=== PATIENT | female | born 1970 | race Caucasian/White ===

== ENCOUNTER 2016-08-27 09:43 | Observation (INO) ==
[2016-08-27] MEDS ORDERED: 0.9 % Sodium Chloride 1,000 ML IVC ONE (10:04)
--- NOTE | 2016-08-27 10:07 | Emergency Department Note ---
Disposition Clinical Impression: Immunosuppressed due to chemotherapy Fever Qualifiers: Fever type: unspecified Qualified Code(s): R50.9 - Fever, unspecified Urinary tract infection Qualifiers: Urinary tract infection type: acute cystitis Hematuria presence: with hematuria Qualified Code(s): N30.01 - Acute cystitis with hematuria Disposition: Admitted As Inpatient Forms: ED Satisfaction Letter Fever HPI - General Chief Complaint: ED Fever Stated Complaint: fever Time Seen by Provider: 08/27/16 09:51 Source: patient Mode of arrival: ambulatory Limitations: no limitations Nursing Notes Reviewed: Yes Vital Signs Reviewed: Yes - History of Present Illness HPI Narrative: Patient presents with a fever for 2 days she states highest is 104. She recently got back on Sunday for chemotherapy in [place] her oncologist recommended going to the nearest ER for IV antibiotics. Pt Subjective Complaint: fever Onset (ago): day(s) (2) Temperature Source: oral Context: sick contacts Associated symptoms: Reports: chills Improves with: nothing Worsens with: nothing - Related Data Home Medications Medication Instructions Recorded Confirmed Calcium Carbonate/Vitamin D3 1 each PO BID 12/24/14 06/28/15 [Calcium 600 + Vitamin D Sftgl] Duloxetine HCl [Cymbalta] 60 mg PO DAILY 12/24/14 06/28/15 LORazepam [Ativan] 1 mg PO Q6H PRN 12/24/14 06/28/15 Venlafaxine HCl [Effexor Xr] 75 mg PO HS 12/24/14 06/28/15 Cyanocobalamin (Vitamin B-12) 5,000 mcg PO DAILY 02/05/15 06/28/15 [Vitamin B-12] Echinacea 02/05/15 02/05/15 Goldenseal 02/05/15 02/05/15 Multivit-Minerals/Folic Acid 200 mcg PO DAILY 02/05/15 06/28/15 [Adult Multi Gummies] Vitamin B Complex [B Complex] 1 each PO DAILY 02/05/15 06/28/15 Multivitamin with Minerals 1 each PO DAILY 03/31/15 06/28/15 [Myvitalife] Magnesium 1 tab PO DAILY 06/28/15 06/28/15 Previous Rx's Medication Instructions Recorded Lidocaine/Prilocaine CREAM [Emla] 1 appl TP AD #1 tube 06/28/15 Prochlorperazine Maleate 10 mg PO Q6HR PRN #60 tablet 06/28/15 [Compazine] Allergies Allergy/AdvReac Type Severity Reaction Status Date / Time No Known Allergies Allergy Verified 07/31/16 13:57 All systems ED: reviewed and negative except as stated. Constitutional: Reports: chills, weakness Respiratory: Denies: dyspnea Gastrointestinal: Denies: abdominal pain, nausea, vomiting Fever PMH - Past Medical History Medical history: Reports: cancer Surgical history: Reports: cancer surgery, ROSIE/BSO Psychiatric history: Reports: anxiety, depression - Social History Smoking Status: Never smoker Alcohol use: Reports: rarely Drug use: Reports: none Physical Exam - General Limitations: no limitations General appearance: alert, in no apparent distress - Head Head exam: atraumatic, normocephalic, normal inspection - Eye Eye exam: Present: normal appearance, PERRL, EOMI - Expanded Eye Exam Pupils: Left: reactive - ENT ENT exam: normal exam, normal oropharynx, mucous membranes moist - Expanded ENT Exam External ear exam: Present: normal external inspection Mouth exam: Present: normal external inspection Teeth exam: Present: normal inspection Throat exam: Present: normal inspection - Neck Neck exam: Present: normal inspection, full ROM, trachea midline - Chest Chest inspection: Present: normal inspection, symmetric chest wall rise - Respiratory Respiratory exam: Present: normal lung sounds bilaterally - Cardiovascular Cardiovascular exam: Present: regular rate, normal rhythm, normal heart sounds - Abdominal Exam Abdominal exam: Present: soft, Non-Tender. Absent: tenderness, distention, guarding, rebound, rigidity - Extremities Exam Extremities exam: Present: normal inspection, full ROM. Absent: tenderness, pedal edema - Expanded Upper Extremity Exam Shoulder exam: Present: normal inspection, full ROM Arm exam: Present: normal inspection, full ROM Elbow exam: Present: normal inspection, full ROM Forearm/Wrist exam: Present: normal inspection, full ROM Hand exam: Present: normal inspection, full ROM Vascular exam: Normal: capillary refill, radial pulse - Expanded Lower Extremity Exam Hip/Pelvis exam: Present: normal inspection, full ROM Upper leg exam: Present: normal inspection, full ROM Knee exam: Present: normal inspection, full ROM Lower leg exam: Present: normal inspection, full ROM Ankle exam: Present: normal inspection, full ROM Foot/toe exam: Present: normal inspection, full ROM Neurovascular/Tendon exam: Absent: motor deficit, sensory deficit, tendon deficit - Back Exam Back exam: Present: normal inspection, full ROM. Absent: tenderness - Neurological Exam Neurological exam: Present: alert, oriented X3 - Expanded Neurological Exam Patient oriented to: Present: person, place, time Coma Scale Eye Opening: Spontaneous Coma Scale Motor Response: Obeys Commands Coma Scale Verbal Response: Oriented Coma Scale Total: 15 - Psychiatric Psychiatric exam: Present: normal affect, normal mood - Skin Skin exam: Present: warm, dry, intact, normal color Course Vital Signs Temperature 98.4 F 08/27/16 09:46 Pulse Rate 118 08/27/16 09:46 Respiratory Rate 20 08/27/16 09:46 Blood Pressure 115/80 08/27/16 09:46 O2 Sat by Pulse Oximetry 97 08/27/16 09:46 Temperature 98.4 F 08/27/16 09:46 Pulse Rate 118 08/27/16 09:46 Respiratory Rate 20 08/27/16 09:46 Blood Pressure 115/80 08/27/16 09:46 O2 Sat by Pulse Oximetry 97 08/27/16 09:46 Oxygen Delivery Oxygen Delivery Room Air Fever - Differential Diagnosis Likely: cellulitis, fever of occult origin, pyelonephritis, viral infection, sepsis, influenza, SIRS - Medical Records Medical records reviewed: Yes I reviewed the patient's medical records. - Lab Data Lab results reviewed: Yes I reviewed the patient's lab results. Result diagrams: 08/27/16 10:29 08/27/16 10:29 Lab Results 08/27/16 08/27/16 08/27/16 Range/Units 10:29 10:29 10:29 WBC 5.3 (4.3-11.1) K/mcL RBC 3.63 L (3.82-4.97) M/mcL Hgb 11.5 (11.5-15.4) g/dL Hct 34.5 L (35.3-44.9) % MCV 95.0 (83.0-100.0) fL MCH 31.7 (28.0-33.3) pg MCHC 33.3 (31.6-35.5) g/dL RDW 16.4 H (11.5-14.5) % Plt Count 117 L (140-400) K/mcL MPV 10.5 (9.4-12.4) fL Immature Gran % 0.8 (0-4) % Seg Neutrophils % 79.9 % Lymphocytes % 12.1 % Monocytes % 0.8 % Eosinophils % 6.0 % Basophils % 0.4 % Neutrophils # 4.2 (1.6-8.9) K/mcL Lymphocytes # 0.6 (0.6-4.6) K/mcL Monocytes # 0.0 (0.0-1.3) K/mcL Eosinophils # 0.3 (0.0-0.6) K/mcL Basophils # 0.0 (0.0-0.2) K/mcL PT 11.6 (9.4-12.1) Seconds INR 1.1 APTT 24.0 L (26.0-36.0) Seconds Sodium 140 (136-145) mEq/L Potassium 4.1 (3.5-4.5) mEq/L Chloride 109 (98-109) mEq/L Carbon Dioxide 22 (19-29) mEq/L BUN 12 (7-20) mg/dL Creatinine 0.66 (0.57-1.11) mg/dL Est GFR ( Amer) > 60 (> 60) Est GFR (Non-Af Amer) > 60 (> 60) BUN/Creatinine Ratio 18 (6-26) Glucose 87 (70-99) mg/dL Calculated Osmolality 289 (280-300) Lactic Acid (0.5-2.2) mmol/L Calcium 8.5 L (8.6-10.8) mg/dL Magnesium 2.0 (1.6-2.6) mg/dL Total Bilirubin 0.4 (0.2-1.2) mg/dL Direct Bilirubin 0.2 (0.0-0.5) mg/dL Indirect Bilirubin 0.2 (0.0-1.2) mg/dL AST 42 H (5-34) Units/L ALT 48 (0-55) Units/L Alkaline Phosphatase 64 (38-126) Units/L Serum Total Protein 6.2 (6.0-8.3) g/dL Albumin 3.4 L (3.5-5.0) g/dL Globulin 2.8 (2.4-3.5) g/dL Albumin/Globulin Ratio 1.2 (1.1-2.2) Urine Color (Yellow) Urine Clarity (Clear) Urine pH (5.0-8.0) pH Units Ur Specific [place] (1.010-1.025) Urine Protein (Neg-Trace) mg/dL Urine Glucose (UA) (Normal) mg/dL Urine Ketones (Negative) mg/dL Urine Blood (Negative) Urine Nitrite (Negative) Urine Bilirubin (Negative) Urine Urobilinogen (Normal) mg/dL Ur Leukocyte Esterase (Negative) Urine Microscopic RBC (0-3) per hpf Urine Microscopic WBC (0-3) per hpf Ur Squamous Epith Cells (None-Few) per lpf Urine Bacteria (None-Few) per hpf Hyaline Casts (None-Few) per lpf Ur Culture Indicated? (NO) 08/27/16 08/27/16 Range/Units 10:29 11:08 WBC (4.3-11.1) K/mcL RBC (3.82-4.97) M/mcL Hgb (11.5-15.4) g/dL Hct (35.3-44.9) % MCV (83.0-100.0) fL MCH (28.0-33.3) pg MCHC (31.6-35.5) g/dL RDW (11.5-14.5) % Plt Count (140-400) K/mcL MPV (9.4-12.4) fL Immature Gran % (0-4) % Seg Neutrophils % % Lymphocytes % % Monocytes % % Eosinophils % % Basophils % % Neutrophils # (1.6-8.9) K/mcL Lymphocytes # (0.6-4.6) K/mcL Monocytes # (0.0-1.3) K/mcL Eosinophils # (0.0-0.6) K/mcL Basophils # (0.0-0.2) K/mcL PT (9.4-12.1) Seconds INR APTT (26.0-36.0) Seconds Sodium (136-145) mEq/L Potassium (3.5-4.5) mEq/L Chloride (98-109) mEq/L Carbon Dioxide (19-29) mEq/L BUN (7-20) mg/dL Creatinine (0.57-1.11) mg/dL Est GFR ( Amer) (> 60) Est GFR (Non-Af Amer) (> 60) BUN/Creatinine Ratio (6-26) Glucose (70-99) mg/dL Calculated Osmolality (280-300) Lactic Acid 1.5 (0.5-2.2) mmol/L Calcium (8.6-10.8) mg/dL Magnesium (1.6-2.6) mg/dL Total Bilirubin (0.2-1.2) mg/dL Direct Bilirubin (0.0-0.5) mg/dL Indirect Bilirubin (0.0-1.2) mg/dL AST (5-34) Units/L ALT (0-55) Units/L Alkaline Phosphatase (38-126) Units/L Serum Total Protein (6.0-8.3) g/dL Albumin (3.5-5.0) g/dL Globulin (2.4-3.5) g/dL Albumin/Globulin Ratio (1.1-2.2) Urine Color Yellow (Yellow) Urine Clarity Clear (Clear) Urine pH 7.0 (5.0-8.0) pH Units Ur Specific [place] 1.017 (1.010-1.025) Urine Protein Negative (Neg-Trace) mg/dL Urine Glucose (UA) Normal (Normal) mg/dL Urine Ketones Negative (Negative) mg/dL Urine Blood Negative (Negative) Urine Nitrite Positive A (Negative) Urine Bilirubin Negative (Negative) Urine Urobilinogen Normal (Normal) mg/dL Ur Leukocyte Esterase Small H (Negative) Urine Microscopic RBC 0-3 (0-3) per hpf Urine Microscopic WBC 5-15 H (0-3) per hpf Ur Squamous Epith Cells Moderate H (None-Few) per lpf Urine Bacteria Many H (None-Few) per hpf Hyaline Casts None Seen (None-Few) per lpf Ur Culture Indicated? YES A (NO) - Radiology Data Radiology results reviewed: Yes I reviewed the patient's radiology results.
[2016-08-27 10:37] LABS: Basophils % 0.4 %; Eosinophils # 0.3 K/mcL (0.0-0.6); Hematocrit 34.5 % (35.3-44.9); Hemoglobin 11.5 g/dL (11.5-15.4); Immature Granulocytes % 0.8 % (0-4); Lymphocytes # 0.6 K/mcL (0.6-4.6); Lymphocytes % 12.1 %; Mean Corpuscular HGB Conc 33.3 g/dL (31.6-35.5); Mean Corpuscular Hemoglobin 31.7 pg (28.0-33.3); Mean Platelet Volume 10.5 fL (9.4-12.4); Monocytes % 0.8 %; Neutrophils # 4.2 K/mcL (1.6-8.9); Platelet Count 117 K/mcL (140-400); Red Blood Count 3.63 M/mcL (3.82-4.97); Red Cell Distribution Width 16.4 % (11.5-14.5); Segmented Neutrophils % 79.9 %
[2016-08-27 10:49] LABS: INR 1.1; Prothrombin Time 11.6 Seconds (9.4-12.1)
[2016-08-27 10:51] LABS: Alanine Aminotransferase 48 Units/L (0-55); Albumin 3.4 g/dL (3.5-5.0); Albumin/Globulin Ratio 1.2 (1.1-2.2); Alkaline Phosphatase 64 Units/L (38-126); Aspartate Amino Transferase 42 Units/L (5-34); BUN/Creatinine Ratio 18 (6-26); Bilirubin,Direct 0.2 mg/dL (0.0-0.5); Bilirubin,Indirect 0.2 mg/dL (0.0-1.2); Bilirubin,Total 0.4 mg/dL (0.2-1.2); Blood Urea Nitrogen 12 mg/dL (7-20); Calcium 8.5 mg/dL (8.6-10.8); Carbon Dioxide 22 mEq/L (19-29); Chloride 109 mEq/L (98-109); Globulin 2.8 g/dL (2.4-3.5); Glucose 87 mg/dL (70-99); Osmolality,Calculated 289 (280-300); Potassium 4.1 mEq/L (3.5-4.5); Sodium 140 mEq/L (136-145); Total Protein 6.2 g/dL (6.0-8.3); eGFR For African Americans > 60 (> 60); eGFR For Non-African Americans > 60 (> 60)
[2016-08-27 11:23] LABS: Bilirubin,Urine Negative (Negative); Blood,Urine Negative (Negative); Clarity,Urine Clear (Clear); Color,Urine Yellow (Yellow); Glucose,Urine (UA) Normal (Normal); Ketones,Urine Negative (Negative); Leukocyte Esterase,Urine Small (Negative); Nitrite,Urine Positive (Negative); Protein,Urine Negative (Neg-Trace); Specific Gravity,Urine 1.017 (1.010-1.025); Urobilinogen,Urine Normal (Normal)
[2016-08-27 11:26] LABS: Bacteria,Urine Many per hpf (None-Few); Hyaline Casts,Urine None Seen per lpf (None-Few); RBC,Urine 0-3 per hpf (0-3); Squamous Epithelial Cell,Urine Moderate per lpf (None-Few)
[2016-08-27] MEDS ORDERED: Meropenem 1,000 MG in 0.9 % Sodium Chloride Mini Bag 100 ML IVPB STA (11:51)
[2016-08-27] MEDS ORDERED: Naloxone 0.4 MG/ML INJ IVP PRN (12:43)
[2016-08-27] MEDS ORDERED: *HR* Morphine 2 MG/ML SYRINGE IVP PRN (12:43)
[2016-08-27] MEDS ORDERED: *HR* LORazepam 1 MG TABLET PO PRN (12:46)
--- NOTE | 2016-08-27 12:54 | Internal Med History&Physical ---
<Juana Yee M - Last Filed: 08/27/16 17:04> Date of Encounter: 08/27/16 Time of Encounter: 12:48 Assessment and Plan (1) Urinary tract infection Current visit: Yes Status: Acute Patient reporting fever to 104, chills and sweats. She denies any dysuria. UA is concerning for UTI. On exam, patient does have mild tenderness to RLQ. She has history of ESBL e.coli UTI susceptible to meropenem. Will treat with IVPB meropenem and await culture results. Qualifiers: Urinary tract infection type: acute cystitis Hematuria presence: with hematuria Qualified Code(s): N30.01 - Acute cystitis with hematuria (2) Fever Current visit: Yes Status: Acute Patient report fever to 104 at home with associated chills and sweats. Patient recently completed a round of chemotherapy on Sunday. UA is concerning for UTI and is likely source of fever. CXR negative for pneumonia. Will treat UTI and continue to monitor. Tylenol PRN for fever. Qualifiers: Fever type: unspecified Qualified Code(s): R50.9 - Fever, unspecified (3) Immunosuppressed due to chemotherapy Current visit: Yes Status: Acute Patient's WBC is actually normal at 5.3, but will continue to monitor given recent chemotherapy treatment. (4) Metastatic breast cancer Current visit: Yes Status: Acute Patient's breast cancer dates back to 2005, when she was treated and in remission until recurrence in 2012. She has been treated by [facility] since her recurrence in 2012. She has metastases to the lung , liver and bone. She had a recent right lower lobe lung resection (07/24/16), and reports no complications, incision on right lateral chest is well healed. She is undergoing chemotherapy and completed a round this past Sunday. She denies any nausea, but reports body aches she states are side effects of the chemotherapy. PRN zofran for nausea PRN [place], morphine for pain Narcan PRN for respiratory depression. (5) DVT prophylaxis Current visit: Yes Status: Acute Encourage ambulation anti-embolic stockings Heparin 5000u SQ TID Internal Medicine - H&P: HPI Chief complaint: fever Admitted From: Emergency Dept Plans for Post Hospital Care: Home History of present illness: Ms. Urbina is a 46 year old female with metastatic breast cancer with recent chemo treatment on Sunday who presented to the ED today with complaints of fever for 2 days. She reports she has had fever up to 104F at home, with chills and sweats. She also reports body aches, but thinks these are a side effect of her chemotherapy. She denies any headache, lightheadedness, chest pain, palpitations, shortness of breath, cough, sore throat, abdominal pain or dysuria. She denies any nausea, vomiting or diarrhea. Evaluation in the ED included a CXR which showed no evidence of pneumonia and mild right basilar scarring. Her UA was concerning for UTI. Her WBC count was normal at 5.3, and lactate was normal at 1.5. She was afebrile, but mildly tachycardic with HR 93- 118. On exam, patient is alert and oriented, in no acute distress. Heart has regular rate and rhythm and lungs are clear bilaterally to auscultation. She has mild tenderness to palpation in her RLQ. Past Med Surg Social Fam HX - Past Medical History Medical history: cancer (breast), kidney stones Psychiatric history: anxiety, depression - Past Surgical History Surgical History: cancer surgery (bilateral mastectomy. RLL lung resection), ROSIE/BSO - Social History Smoking Status: Never smoker Smokeless Tobacco Status: No Alcohol use: rarely Drug use: none - Family History Mother Living Status: Age at : 37 Cause of : suicide Father Living Status: Still Living Internal Medicine - H&P: Meds Calcium Carbonate/Vitamin D3 [Calcium 600 + Vitamin D Sftgl] 1 cap PO BID [History] Duloxetine HCl [Cymbalta] 60 mg PO QAM 12/24/14 [History] LORazepam [Ativan] 1 mg PO Q6H PRN 12/24/14 [History] Cyanocobalamin (Vitamin B-12) [Vitamin B-12] 5,000 mcg PO DAILY 02/05/15 [ History] Vitamin B Complex [B Complex] 1 tab PO DAILY 02/05/15 [History] Multivitamin with Minerals [Myvitalife] 1 cap PO DAILY 03/31/15 [History] Lidocaine/Prilocaine CREAM [Emla] 1 appl TP AD #1 tube 06/28/15 [Rx] Prochlorperazine Maleate [Compazine] 10 mg PO Q6HR PRN #60 tablet 06/28/15 [Rx] Gabapentin [Neurontin] 300 mg PO QAM 08/27/16 [History] Gabapentin [Neurontin] 600 mg PO HS 08/27/16 [History] Venlafaxine HCl [Venlafaxine HCl ER] 150 mg PO HS 08/27/16 [History] Allergies No Known Allergies Allergy (Verified 07/31/16 13:57) All Systems PM: A 10-system review of systems was performed and is negative for pertinent findings except as documented above in the HPI. - Constitutional Constitutional: chills, fever(s), night sweats - EENT Eyes: no change in vision, no discharge, no pain, no photophobia Ears: no ear discharge, no ear pain, no tinnitus Nose, mouth and throat: no dysphagia, no nasal discharge, no neck pain, no sore throat - Cardiovascular Cardiovascular ROS IM: no chest pain, no diaphoresis, no dyspnea, no lightheadedness, no palpitations, no syncope - Respiratory Respiratory: no cough, no dyspnea, no wheezing, no excessive phlegm production - Gastrointestinal Gastrointestinal: no abdominal pain, no diarrhea, no hematemesis, no hematochezia, no melena, no nausea, no vomiting - Genitourinary Genitourinary: no change in urinary stream, no dysuria, no flank pain, no hematuria - Musculoskeletal Musculoskeletal ROS IM: no numbness, no tingling - Integumentary Integumentary IM: no rash, no unusual bruising - Neurological Neurological ROS: no confusion, no convulsions, no focal weakness, no numbness, no tingling, no tremor(s) - Hematologic/Lymphatic Hematologic/Lymphatic: no easy bruising - Constitutional Vitals: Temp Pulse Resp BP Pulse Ox 98.4 F 93 18 118/76 98 08/27/16 09:46 08/27/16 11:49 08/27/16 12:23 08/27/16 12:23 08/27/16 11:49 General appearance: Present: A&O X 3, pleasant, no acute distress - Head Head exam: Present: atraumatic, normocephalic - Eye Eye exam: Present: PERRL, conjuntiva pink, sclera anicteric Pupils: Present: PERRL - Neck Neck exam general surgery: Present: supple, trachea midline. Absent: lymphadenopathy - Respiratory Respiratory exam: Present: CTAB. Absent: accessory muscle use, rales, rhonchi, wheezes - Cardiovascular Cardiovascular exam: Present: RRR, +S1, +S2. Absent: diastolic murmur, gallop, rubs, systolic murmur - GI/Abdominal GI/Abdominal exam: Present: normal bowel sounds, soft, tenderness (mild in RLQ) , no peritoneal signs. Absent: distended - Extremities Exam Extremities exam: Present: warm, radial pulses palpable and symetrical. Absent : calf tenderness, cyanotic, pedal edema - Neurological Exam Neurological exam: Present: CN II-XII intact, oriented X3, no focal deficits. Absent: facial droop, speech deficit - Skin Skin exam: Present: dry, intact Internal Med - H&P Results - Labs CBC & Chem 7: 08/27/16 10:29 08/27/16 10:29 Labs: All Lab Results (24 Hours) 08/27/16 08/27/16 08/27/16 Range/Units 10:29 10:29 10:29 WBC 5.3 (4.3-11.1) K/mcL RBC 3.63 L (3.82-4.97) M/mcL Hgb 11.5 (11.5-15.4) g/dL Hct 34.5 L (35.3-44.9) % MCV 95.0 (83.0-100.0) fL MCH 31.7 (28.0-33.3) pg MCHC 33.3 (31.6-35.5) g/dL RDW 16.4 H (11.5-14.5) % Plt Count 117 L (140-400) K/mcL MPV 10.5 (9.4-12.4) fL Immature Gran % 0.8 (0-4) % Seg Neutrophils % 79.9 % Lymphocytes % 12.1 % Monocytes % 0.8 % Eosinophils % 6.0 % Basophils % 0.4 % Neutrophils # 4.2 (1.6-8.9) K/mcL Lymphocytes # 0.6 (0.6-4.6) K/mcL Monocytes # 0.0 (0.0-1.3) K/mcL Eosinophils # 0.3 (0.0-0.6) K/mcL Basophils # 0.0 (0.0-0.2) K/mcL PT 11.6 (9.4-12.1) Seconds INR 1.1 APTT 24.0 L (26.0-36.0) Seconds Sodium 140 (136-145) mEq/L Potassium 4.1 (3.5-4.5) mEq/L Chloride 109 (98-109) mEq/L Carbon Dioxide 22 (19-29) mEq/L BUN 12 (7-20) mg/dL Creatinine 0.66 (0.57-1.11) mg/dL Est GFR ( Amer) > 60 (> 60) Est GFR (Non-Af Amer) > 60 (> 60) BUN/Creatinine Ratio 18 (6-26) Glucose 87 (70-99) mg/dL Calculated Osmolality 289 (280-300) Lactic Acid (0.5-2.2) mmol/L Calcium 8.5 L (8.6-10.8) mg/dL Magnesium 2.0 (1.6-2.6) mg/dL Total Bilirubin 0.4 (0.2-1.2) mg/dL Direct Bilirubin 0.2 (0.0-0.5) mg/dL Indirect Bilirubin 0.2 (0.0-1.2) mg/dL AST 42 H (5-34) Units/L ALT 48 (0-55) Units/L Alkaline Phosphatase 64 (38-126) Units/L Serum Total Protein 6.2 (6.0-8.3) g/dL Albumin 3.4 L (3.5-5.0) g/dL Globulin 2.8 (2.4-3.5) g/dL Albumin/Globulin Ratio 1.2 (1.1-2.2) Urine Color (Yellow) Urine Clarity (Clear) Urine pH (5.0-8.0) pH Units Ur Specific [place] (1.010-1.025) Urine Protein (Neg-Trace) mg/dL Urine Glucose (UA) (Normal) mg/dL Urine Ketones (Negative) mg/dL Urine Blood (Negative) Urine Nitrite (Negative) Urine Bilirubin (Negative) Urine Urobilinogen (Normal) mg/dL Ur Leukocyte Esterase (Negative) Urine Microscopic RBC (0-3) per hpf Urine Microscopic WBC (0-3) per hpf Ur Squamous Epith Cells (None-Few) per lpf Urine Bacteria (None-Few) per hpf Hyaline Casts (None-Few) per lpf Ur Culture Indicated? (NO) 08/27/16 08/27/16 08/27/16 Range/Units 10:29 11:08 12:17 WBC (4.3-11.1) K/mcL RBC (3.82-4.97) M/mcL Hgb (11.5-15.4) g/dL Hct (35.3-44.9) % MCV (83.0-100.0) fL MCH (28.0-33.3) pg MCHC (31.6-35.5) g/dL RDW (11.5-14.5) % Plt Count (140-400) K/mcL MPV (9.4-12.4) fL Immature Gran % (0-4) % Seg Neutrophils % % Lymphocytes % % Monocytes % % Eosinophils % % Basophils % % Neutrophils # (1.6-8.9) K/mcL Lymphocytes # (0.6-4.6) K/mcL Monocytes # (0.0-1.3) K/mcL Eosinophils # (0.0-0.6) K/mcL Basophils # (0.0-0.2) K/mcL PT (9.4-12.1) Seconds INR APTT (26.0-36.0) Seconds Sodium (136-145) mEq/L Potassium (3.5-4.5) mEq/L Chloride (98-109) mEq/L Carbon Dioxide (19-29) mEq/L BUN (7-20) mg/dL Creatinine (0.57-1.11) mg/dL Est GFR ( Amer) (> 60) Est GFR (Non-Af Amer) (> 60) BUN/Creatinine Ratio (6-26) Glucose (70-99) mg/dL Calculated Osmolality (280-300) Lactic Acid 1.5 0.7 (0.5-2.2) mmol/L Calcium (8.6-10.8) mg/dL Magnesium (1.6-2.6) mg/dL Total Bilirubin (0.2-1.2) mg/dL Direct Bilirubin (0.0-0.5) mg/dL Indirect Bilirubin (0.0-1.2) mg/dL AST (5-34) Units/L ALT (0-55) Units/L Alkaline Phosphatase (38-126) Units/L Serum Total Protein (6.0-8.3) g/dL Albumin (3.5-5.0) g/dL Globulin (2.4-3.5) g/dL Albumin/Globulin Ratio (1.1-2.2) Urine Color Yellow (Yellow) Urine Clarity Clear (Clear) Urine pH 7.0 (5.0-8.0) pH Units Ur Specific [place] 1.017 (1.010-1.025) Urine Protein Negative (Neg-Trace) mg/dL Urine Glucose (UA) Normal (Normal) mg/dL Urine Ketones Negative (Negative) mg/dL Urine Blood Negative (Negative) Urine Nitrite Positive A (Negative) Urine Bilirubin Negative (Negative) Urine Urobilinogen Normal (Normal) mg/dL Ur Leukocyte Esterase Small H (Negative) Urine Microscopic RBC 0-3 (0-3) per hpf Urine Microscopic WBC 5-15 H (0-3) per hpf Ur Squamous Epith Cells Moderate H (None-Few) per lpf Urine Bacteria Many H (None-Few) per hpf Hyaline Casts None Seen (None-Few) per lpf Ur Culture Indicated? YES A (NO) - Diagnostic Studies Chest x-ray Additional comments: Chest X-Ray 08/27/16 10:05 IMPRESSION: No evidence of pneumonia. Mild right basilar atelectasis or scarring. Stable right humeral head sclerotic lesion. D/ / 08/27/2016 10:32:12 Alon Bowers MD / [email or web address] Interpreting Provider: Alon Bowers MD <Britton Pan - Last Filed: 08/27/16 19:28> Date of Encounter: 08/27/16 Internal Medicine - H&P: HPI History of present illness: Ms. Urbina is a 46 year old female All Systems PM: A 10-system review of systems was performed and is negative for pertinent findings except as documented above in the HPI. - Constitutional Vitals: Temp Pulse Resp BP Pulse Ox 99.1 F 93 18 121/82 98 08/27/16 18:49 08/27/16 18:49 08/27/16 18:49 08/27/16 18:49 08/27/16 18:49 Internal Med - H&P Results - Labs CBC & Chem 7: 08/27/16 10:29 08/27/16 10:29 - Attending Attestation I examined this patient and my medical decision-making was reviewed with the Advanced Practice Nurse on 08/27/16. I agree with the documented findings, disposition and treatment plan as described except to the extent set forth below. Ms. Urbina is a 46 y/o with recurrent breast cancer presents to ED with fever. She just had chemo last Sunday (in [place]). Has hx of ESBL E coli UTI. No pain. No dysuria. Exam Alert. Comfortable Heart reg Lungs clear Abd nontender I/P 1. UTI - hx ESBL - will treat with Merrem for now. 2. Breast cancer s/p chemo - not neutropenic at this time Further information and plan as above in H&P
[2016-08-27] MEDS: *HR* Heparin 5,000 UNIT/ML VIAL SQ SCH ×2 (13:00→21:13)
[2016-08-27] MEDS: 0.9 % Sodium Chloride 1,000 ML IVC SCH (17:00)
[2016-08-27] MEDS ORDERED: Meropenem 1,000 MG in 0.9 % Sodium Chloride Mini Bag 100 ML IVPB SCH (20:00)
[2016-08-27] MEDS: Gabapentin 300 MG CAPSULE PO SCH (21:13)
[2016-08-27] MEDS: Acetaminophen 325 MG TABLET PO PRN (21:13)
[2016-08-27] MEDS: Venlafaxine XR (24 HR) 150 MG CAP.ER.24H PO SCH (21:13)
[2016-08-28] MEDS: 0.9 % Sodium Chloride 1,000 ML IVC SCH ×3 (00:16→20:30)
[2016-08-28] MEDS ORDERED: Meropenem 1,000 MG in 0.9 % Sodium Chloride Mini Bag 100 ML IVPB SCH (05:00)
[2016-08-28 05:08] LABS: Basophils % 0.4 %; Eosinophils # 0.4 K/mcL (0.0-0.6); Eosinophils % 13.5 %; Hematocrit 31.3 % (35.3-44.9); Hemoglobin 10.6 g/dL (11.5-15.4); Immature Granulocytes % 0.4 % (0-4); Lymphocytes # 0.9 K/mcL (0.6-4.6); Lymphocytes % 32.4 %; Mean Corpuscular HGB Conc 33.9 g/dL (31.6-35.5); Mean Corpuscular Volume 94.6 fL (83.0-100.0); Mean Platelet Volume 10.6 fL (9.4-12.4); Monocytes # 0.1 K/mcL (0.0-1.3); Monocytes % 1.8 %; Neutrophils # 1.4 K/mcL (1.6-8.9); Platelet Count 109 K/mcL (140-400); Red Blood Count 3.31 M/mcL (3.82-4.97); Red Cell Distribution Width 16.2 % (11.5-14.5); Segmented Neutrophils % 51.5 %
[2016-08-28 05:22] LABS: BUN/Creatinine Ratio 16 (6-26); Blood Urea Nitrogen 9 mg/dL (7-20); Calcium 8.3 mg/dL (8.6-10.8); Carbon Dioxide 22 mEq/L (19-29); Chloride 110 mEq/L (98-109); Glucose 85 mg/dL (70-99); Osmolality,Calculated 286 (280-300); Sodium 139 mEq/L (136-145); eGFR For African Americans > 60 (> 60); eGFR For Non-African Americans > 60 (> 60)
[2016-08-28 05:52] LABS: Anisocytosis 1+ (Not Present); Platelet Estimate Decreased (Normal)
[2016-08-28 05:54] LABS: Reactive Lymphocytes Present (Not Present)
[2016-08-28] MEDS: *HR* Heparin 5,000 UNIT/ML VIAL SQ SCH (06:21)
[2016-08-28] MEDS: Vitamin B Complex/Vit C/Vit E 1 EACH TABLET PO SCH (08:55)
[2016-08-28] MEDS: Multivit/Ca/Min/Fe/FA 1 TAB TABLET PO SCH (08:55)
[2016-08-28] MEDS ORDERED: Cyanocobalamin (B-12) 1,000 MCG TABLET PO SCH (09:00)
[2016-08-28] MEDS ORDERED: Gabapentin 300 MG CAPSULE PO SCH (09:00)
--- NOTE | 2016-08-28 10:21 | Internal Med Progress Note ---
Date of Encounter: 08/28/16 Time of Encounter: 09:20 - Assessment and plan (1) Urinary tract infection Current Visit: Yes Status: Acute Assessment and plan: Complicated due to prior ESBL Escherichia coli infection. Will change antibiotic to ertapenem. No longer having any fevers. Urine culture growing gram-negative rods which could be ESBL. Moderate risk for complications. She will need to be discharged on IV antibiotics if the organism is an ESBL bacteria Qualifiers: Urinary tract infection type: acute cystitis Hematuria presence: with hematuria Qualified Code(s): N30.01 - Acute cystitis with hematuria (2) Palmar erythema Current Visit: Yes Status: Acute Assessment and plan: Uncertain etiology. Will monitor for now. No signs of arterial embolism. Could be a drug reaction or related to chemotherapy. Does not appear to be hand -itju-yue-daaao disease as patient does not have any lesions anywhere else. (3) Fever Current Visit: Yes Status: Resolved Assessment and plan: Due to acute UTI. This has resolved Qualifiers: Fever type: due to other condition Qualified Code(s): R50.81 - Fever presenting with conditions classified elsewhere (4) Immunosuppressed due to chemotherapy Current Visit: Yes Status: Acute Assessment and plan: Currently patient's WBC count is 2.8 with absolute neutrophil count of 1.4. Will consult oncology for further recommendations. (5) DVT prophylaxis Current Visit: Yes Status: Acute Assessment and plan: Patient has been on heparin subcutaneous. Will change to Lovenox. Patient does have underlying pancytopenia (6) Metastatic breast cancer Current Visit: Yes Status: Acute Assessment and plan: Consult oncology for further recommendations. Patient follows [facility]. She can follow up with them after discharge. - Subjective Interval history: Patient is awake and alert. She has not had any further episodes of fevers overnight. Complains of some redness in both her palms with associated numbness. No pain. She has never had similar kinds of symptoms before. She is not allergic to any medications. She denies any pain in her mouth or feet - Constitutional Vitals: Temp Pulse Resp BP Pulse Ox 98.0 F 99 18 121/80 97 08/28/16 04:57 08/28/16 04:57 08/28/16 04:57 08/28/16 04:57 08/28/16 04:57 General appearance: Present: mild distress, A&O X 3, pleasant, answers questions appropriately - ENT ENT exam: Present: mucous membranes moist - Neck Neck exam general surgery: Present: supple, trachea midline. Absent: lymphadenopathy - Respiratory Respiratory exam: Present: CTAB. Absent: accessory muscle use, rales, rhonchi, wheezes - Cardiovascular Cardiovascular exam: Present: RRR, +S1, +S2. Absent: diastolic murmur, gallop, rubs, systolic murmur - GI/Abdominal GI/Abdominal exam: Present: normal bowel sounds, soft, no peritoneal signs. Absent: distended, tenderness - Extremities Exam Extremities exam: Present: warm, radial pulses palpable and symetrical. Absent : calf tenderness, cyanotic, pedal edema Additional comments: Erythema on both palms. Nontender to palpation. No vesicles seen. Patient has good radial pulses. - Neurological Exam Neurological exam: Present: alert, oriented X3, no focal deficits, strengths equal and symetr throughout. Absent: facial droop, speech deficit - Skin Skin exam: Present: dry, erythema (As described above), intact Internal Medicine: Result - Labs CBC & Chem 7: 08/28/16 04:37 08/28/16 04:37 Labs: Short CBC 08/28/16 Range/Units 04:37 WBC 2.8 L (4.3-11.1) K/mcL Hgb 10.6 L (11.5-15.4) g/dL Hct 31.3 L (35.3-44.9) % Plt Count 109 L (140-400) K/mcL Neutrophils # 1.4 L (1.6-8.9) K/mcL BMP 08/28/16 04:37 Sodium 139 Potassium 4.0 Chloride 110 H Carbon Dioxide 22 BUN 9 Creatinine 0.58 Glucose 85 Calcium 8.3 L - ABG Interpretation ABG results: PT/INR, D-dimer PT 11.6 Seconds (9.4-12.1) 08/27/16 10:29 Consult Discharge Plan - Plan Referrals: Johnnie Amaya MD [Primary Care Provider] - - Attending Attestation This document has been at least partially created by [employer] recognition technology by Dr. Ott. Errors in grammar, wording or other phrases may exist. If errors are found after the documentation is signed, they will be addressed individually in the addendum section of this document when appropriate.
--- NOTE | 2016-08-28 15:29 | Oncology Inp Consult Note ---
<Rossy Recio E - Last Filed: 08/29/16 11:38> Date of Encounter: 08/29/16 Time of Encounter: 14:00 Assessment and Plan (1) Hand foot syndrome Status: Acute Assessment and plan: Associated with previous treatment with Xeloda. Instructed to apply Udderly Smoooth cream to hand and feet several times a day, with extreme dryness and cracking the skin and apply and cover hands and feet with cotton gloves/socks. She was encouraged to avoid any activity putting pressure on hands and feet. To avoid hot showers, avoid hands being and hot water when doing dishes. If a break in the skin occurred she was encouraged to apply liquid bandage. (2) Immunosuppressed due to chemotherapy Status: Acute Assessment and plan: Current ANC 1400, consider giving Neupogen is ANC 500 or below. (3) Urinary tract infection Status: Acute Assessment and plan: COntinue current treatment until C&S final. (4) Metastatic breast cancer Status: Acute - Data of Consult Patient: known to practice within the last 3 years Consult date: 08/28/16 Requesting Physician: Magdalene Ott MD Primary Care Provider: Johnnie Amaya MD - Consult Narrative Reason for consult: Pancytopenia following chemotherapy History of present illness: Ms. Urbina is a 46 year old female with a history of left breast cancer. She was admitted through the [place] emergency department with fever. She states fever been present for 2 days with the highest being 104. She is currently receiving chemotherapy at [facility] in [place]. Her last chemotherapy was given on 08/25/2016. At that time she received Taxotere, Perjeta and Herceptin. Prior to current treatment she had been receiving Xeloda and which she took Xeloda twice a day for 14 days with 7 day off prior to starting the next cycle. She states that she had been on this medication for about 3 months. The reason for changing from Xeloda to her current treatment was because the right lung nodule pathology indicated HER-2 positive disease. In the past her disease had been HER-2 negative. The patient she has been on several different chemotherapy agents since being treated at [facility]. Do not have records to review. The patient had previously been seen at [facility]. She was initially diagnosed with breast cancer in 2005. She had BRCA testing that was negative. Her oncology history to the reviewed per the oncology consult note 06/28/2015. Was seen and examined at bedside. She states she is feeling much better than now than when admitted. She is afebrile at this time. She is currently being treated with INVanz for urinary tract infection. Cultures indicate gram- negative amisha. Final culture and sensitivity pending. Past Med Surg Social Fam HX - Past Medical History Medical history: cancer (breast L), kidney stones Psychiatric history: anxiety, depression - Past Surgical History Surgical History: cancer surgery (bilateral mastectomy. Left modified radical mastectomy, right prophylactic mastectomy RLL lung resection), ROSIE/BSO (1 ovary ) - Social History Smoking Status: Never smoker Smokeless Tobacco Status: No Alcohol use: rarely Drug use: none - Family History Mother Living Status: Age at : 37 Cause of : suicide Father Living Status: Still Living Medications and Allergies Calcium Carbonate/Vitamin D3 [Calcium 600 + Vitamin D Sftgl] 1 cap PO BID [History] Duloxetine HCl [Cymbalta] 60 mg PO QAM 12/24/14 [History] LORazepam [Ativan] 1 mg PO Q6H PRN 12/24/14 [History] Cyanocobalamin (Vitamin B-12) [Vitamin B-12] 500 mcg PO DAILY 02/05/15 [History] Vitamin B Complex [B Complex] 1 tab PO DAILY 02/05/15 [History] Multivitamin with Minerals [Myvitalife] 1 cap PO DAILY 03/31/15 [History] Lidocaine/Prilocaine CREAM [Emla] 1 appl TP AD #1 tube 06/28/15 [Rx] Prochlorperazine Maleate [Compazine] 10 mg PO Q6HR PRN #60 tablet 06/28/15 [Rx] Gabapentin [Neurontin] 300 mg PO QAM 08/27/16 [History] Gabapentin [Neurontin] 600 mg PO HS 08/27/16 [History] Venlafaxine HCl [Venlafaxine HCl ER] 150 mg PO HS 08/27/16 [History] Allergies No Known Allergies Allergy (Verified 07/31/16 13:57) All systems: reviewed and no additional remarkable complaints except as stated Constitutional: Present: fatigue Additional comments: Breath denies shortness of breath, or cough Additional comments: Denies GI symptoms Additional comments: Denies dysuria, urgency, frequency Additional comments: Denies depression or anxiety Oncology - Exam - Constitutional Vitals: Temp Pulse Resp BP Pulse Ox 98.1 F 100 16 122/82 98 08/28/16 15:01 08/28/16 15:01 08/28/16 15:01 08/28/16 15:01 08/28/16 15:01 General appearance: no acute distress - Head Head exam: Present: normal inspection, normocephalic - ENT ENT exam: Present: mucous membranes moist, normal exam - Neck Additional comments: No lymphadenopathy - Respiratory Respiratory exam: Present: CTAB - Cardiovascular Cardiovascular exam: Present: RRR - GI/Abdominal GI/Abdominal exam: Present: soft (, Nontender) - Extremities Exam Extremities exam: Present: normal inspection (No edema) - Back Exam Back exam: Present: normal inspection - Neurological Exam Neurological exam: Present: alert, oriented X3 - Skin Skin exam: Present: erythema Additional comments: Erythema on palms of hands and soles of [id number] syndrome related to previous Xeloda treatment Oncology - Results - Labs Labs: Short CBC 08/28/16 Range/Units 04:37 WBC 2.8 L (4.3-11.1) K/mcL Hgb 10.6 L (11.5-15.4) g/dL Hct 31.3 L (35.3-44.9) % Plt Count 109 L (140-400) K/mcL Neutrophils # 1.4 L (1.6-8.9) K/mcL BMP 08/28/16 04:37 Sodium 139 Potassium 4.0 Chloride 110 H Carbon Dioxide 22 BUN 9 Creatinine 0.58 Glucose 85 Calcium 8.3 L Consult Discharge Plan - Plan Referrals: Vandana Alvarez MD [Partnered Physician] - 09/08/16 3:50 pm Johnnie Amaya MD [Primary Care Provider] - 09/06/16 11:00 am () <Vandana Alvarez - Last Filed: 08/29/16 19:52> Date of Encounter: 08/29/16 - Data of Consult Requesting Physician: Yelena Monzon MD Primary Care Provider: Johnnie Amaya MD - Consult Narrative History of present illness: Ms. Urbina is a 46 year old female Oncology - Exam - Constitutional Vitals: Temp Pulse Resp BP Pulse Ox 98.0 F 102 17 117/79 93 08/29/16 15:23 08/29/16 15:23 08/29/16 15:23 08/29/16 15:23 08/29/16 15:23 Oncology - Results - Labs Labs: Short CBC 08/28/16 Range/Units 19:16 Neutrophils # 0.4 L (1.6-8.9) K/mcL BMP 08/28/16 19:16 Glucose 130 H Calcium 9.1 Cardiac Enzymes 08/28/16 Range/Units Unknown Troponin I 0.00 (0-0.03) ng/mL Liver Function 08/28/16 Range/Units 19:16 Total Bilirubin 0.6 (0.2-1.2) mg/dL AST 26 (5-34) Units/L ALT 37 (0-55) Units/L Alkaline Phosphatase 60 (38-126) Units/L Albumin 3.8 (3.5-5.0) g/dL - Attending Attestation Metastatic breast cancer. She received multiple treatments. Shewas getting Xeloda single agent. Her main disease was in the lungs with multiple lung nodules and also may be some liver lesion. We will try to get the records from [facility] [place] had last dose of Xeloda was around 08/23/2016 She had a recent biopsy which showed her breast cancer was HER-2 positive. About 25% of the time Her 2 negative can convert to HER-2 positive. She was started on Taxotere Herceptin pertuzumab first dose on 08/25/2016 and she was hospitalized next day with UTI with ESBL getting antibiotics Currently Neulasta was not approved by insurance She was not neutropenic on admission but progressive neutropenia with neutrophil count 400 Started on Neupogen 480 g daily She is willing to get further chemotherapy locally at [facility]. I will review the records from [facility] and make a follow-up appointment here. Will continue to work with CT CA 2. She had episode of SVT converted to sinus rhythm with an Adenosine. Cardiology was consulted and started on beta blockers and currently stable 3. Significant hand-foot syndrome with erythema and pain. We will try hydrocortisone ointment topical
[2016-08-28 19:24] LABS: Hemoglobin 11.5 g/dL (11.5-15.4)
[2016-08-28] MEDS ORDERED: *HR* Metoprolol 5 MG/5 ML VIAL IVP ONE ×2 (19:24→19:26)
[2016-08-28 19:25] LABS: Basophils % 1.2 %; Eosinophils # 0.2 K/mcL (0.0-0.6); Eosinophils % 12.9 %; Hematocrit 32.3 % (35.3-44.9); Immature Granulocytes % 1.2 % (0-4); Lymphocytes # 0.9 K/mcL (0.6-4.6); Mean Corpuscular HGB Conc 35.6 g/dL (31.6-35.5); Mean Corpuscular Hemoglobin 32.6 pg (28.0-33.3); Mean Corpuscular Volume 91.5 fL (83.0-100.0); Mean Platelet Volume 10.2 fL (9.4-12.4); Monocytes # 0.1 K/mcL (0.0-1.3); Monocytes % 3.7 %; Neutrophils # 0.4 K/mcL (1.6-8.9); Platelet Count 103 K/mcL (140-400); Red Blood Count 3.53 M/mcL (3.82-4.97)
[2016-08-28 19:34] LABS: Alanine Aminotransferase 37 Units/L (0-55); Albumin 3.8 g/dL (3.5-5.0); Albumin/Globulin Ratio 1.3 (1.1-2.2); Alkaline Phosphatase 60 Units/L (38-126); Aspartate Amino Transferase 26 Units/L (5-34); BUN/Creatinine Ratio 9 (6-26); Bilirubin,Total 0.6 mg/dL (0.2-1.2); Blood Urea Nitrogen 6 mg/dL (7-20); Calcium 9.1 mg/dL (8.6-10.8); Carbon Dioxide 23 mEq/L (19-29); Chloride 108 mEq/L (98-109); Globulin 2.9 g/dL (2.4-3.5); Glucose 130 mg/dL (70-99); Magnesium 2.2 mg/dL (1.6-2.6); Osmolality,Calculated 289 (280-300); Phosphorous 1.3 mg/dL (2.3-4.7); Potassium 3.5 mEq/L (3.5-4.5); Sodium 140 mEq/L (136-145); Total Protein 6.7 g/dL (6.0-8.3); eGFR For African Americans > 60 (> 60); eGFR For Non-African Americans > 60 (> 60)
[2016-08-28 20:01] LABS: Platelet Estimate Slight Decrease (Normal); Reactive Lymphocytes Present (Not Present)
[2016-08-28] MEDS ORDERED: *HR* Metoprolol 5 MG/5 ML VIAL IVP PRN (20:13)
[2016-08-28] MEDS: Ondansetron ODT 4 MG TAB.RAPDIS SL PRN (20:28)
[2016-08-28 20:49] LABS: Ionized Calcium 1.11 mmol/L (1.15-1.35)
--- NOTE | 2016-08-28 21:12 | Event Note ---
Date of Encounter: 08/29/16 Time of Encounter: 19:40 A rapid response was called at 1940 due to the patient's rapid heart rate and lightheadedness. On my arrival the patient appeared to be pale and diaphoretic , anxious she was complaining of jaw pain and palpitations. Physical exam: Heart was regular tachycardic with a rate of 220-230 by monitor. Lungs were clear to auscultation bilaterally. Extremities showed no edema. Head was atraumatic, pupils equal round reactive to light extraocular movements intact, neurologically she had a nonfocal exam. Abdomen was soft nontender nondistended with normoactive bowel sounds. I obtained an EKG stat which showed SVT with a rate of [address] changes. No ST elevation was noted. Blood pressure was marginal at 90/60. I have ordered 500 mL bolus normal saline. The patient was at high risk for quick decompensation and cardiac arrest, her SVT was unstable and could degrade into PA arrest. I have ordered 6 mg of IV adenosine which was administered by the nurse at the bedside. The supraventricular tachycardia resolved within 30 seconds of medication administration and the patient is hard to rate went into sinus tachycardia. She reported significant improvement in her symptoms her jaw pain had resolved. I obtain a repeat EKG which showed normal sinus rhythm and nonspecific ST changes. I will obtain troponin, chemistry panel and electrolytes. Replete magnesium and potassium as needed. Given history of multiple runs of chemotherapy I will obtain an echocardiogram to assess ejection fraction. I will consult cardiology in the morning. I will transfer the patient to stepdown , for now she will be placed in the ICU as an overflow. I will start IV metoprolol 2.5 mg every 6 hours. The patient is highly unstable and there is high probability of emergent and significant clinical decompensation with potential impairment of organ function including cardiovascular system and respiratory system. I have performed 45 minutes of critical care time which involved decision making of high complexity to assess, manipulate, and support vital organ system, in order to prevent further life threatening deterioration of the patient's condition. The time involved in the performance of any procedures was not counted toward critical care time and will be billed separately. Critical care time was spent evaluating the patient, reviewing EKGs, telemetry tracing, imaging studies and laboratory data, ordering medications and reevaluating for clinical response. Date:
[2016-08-28] MEDS: Gabapentin 300 MG CAPSULE PO SCH (22:03)
[2016-08-28] MEDS: Venlafaxine XR (24 HR) 150 MG CAP.ER.24H PO SCH (22:04)
[2016-08-29] MEDS: 0.9 % Sodium Chloride 1,000 ML IVC SCH ×2 (04:22→15:13)
[2016-08-29] MEDS: *HR* Enoxaparin 40 MG/0.4 ML SYRINGE SQ SCH (06:08)
[2016-08-29] MEDS ORDERED: Potassium Phosphate 44 MEQ in 0.9 % Sodium Chloride 250 ML IVPB ONE (07:28)
[2016-08-29] MEDS: Ertapenem 1,000 MG in 0.9 % Sodium Chloride Mini Bag 100 ML IVPB SCH (08:42)
[2016-08-29] MEDS: Vitamin B Complex/Vit C/Vit E 1 EACH TABLET PO SCH (08:44)
[2016-08-29] MEDS: Multivit/Ca/Min/Fe/FA 1 TAB TABLET PO SCH (08:44)
[2016-08-29] MEDS: Cyanocobalamin (B-12) 1,000 MCG TABLET PO SCH (08:45)
--- NOTE | 2016-08-29 09:49 | Cardiology Consult Note ---
Date of Encounter: 08/29/16 Time of Encounter: 09:40 Assessment and Plan (1) SVT (supraventricular tachycardia) Current Visit: Yes Status: Acute SVT in the setting of infection and chemotherapy. No previous history. Now tachycardic in the setting of infection. HR will likely improve with IV antibiotic and metoprolol. Responded to 6 mg adenosine and IV fluid. Start metoprolol. On IV metoprolol PRN. TTE ordered. Check TSH. Discussion w patient/family: The assessment and plan as outlined above was discussed with the patient and/or family members who expressed understanding and agreement. All questions were answered. Thank you for involving us in the care of your patient. Please call with any questions. History of Present Illness Consult date: 08/29/16 Requesting physician: Brenden Vee Consult reason: SVT Chief complaint: Fever and chills History of present illness: Ms. Urbina is a 46 year old female who presented with fever and chills. Tmax 104.0 at home. She was found to have a UTI and is being treated with IV antibiotic. CXR was negative for pneumonia. Yesterday she developed SVT with HR in the 170's. She did not respond to vagal maneuvers. She received chemical cardioversion with 6mg of adenosine. She has a history of breast cancer diagnosed in 2005. She has mets to the lung, liver, and bone, s/p lung resection on 07/24/16. the She has receive multiple rounds of chemo and radiation. She is currently following in [place] for her cancer care and is receiving chemo therapy. Her last treatment was last sunday. She denies previous history of CAD or undergoing previous cardiac testing. Past Med Surg Social Fam HX - Past Medical History Attestation: Yes The following information was validated with the patient. Medical history: cancer (breast L), kidney stones Psychiatric history: anxiety, depression - Past Surgical History Surgical History: cancer surgery (bilateral mastectomy. Left modified radical mastectomy, right prophylactic mastectomy RLL lung resection), ROSIE/BSO (1 ovary ) - Social History Smoking Status: Never smoker Smokeless Tobacco Status: No Alcohol use: rarely Drug use: none - Family History Mother Living Status: Age at : 37 Cause of : suicide Father Living Status: Still Living Medications and Allergies Calcium Carbonate/Vitamin D3 [Calcium 600 + Vitamin D Sftgl] 1 cap PO BID [History] Duloxetine HCl [Cymbalta] 60 mg PO QAM 12/24/14 [History] LORazepam [Ativan] 1 mg PO Q6H PRN 12/24/14 [History] Cyanocobalamin (Vitamin B-12) [Vitamin B-12] 500 mcg PO DAILY 02/05/15 [History] Vitamin B Complex [B Complex] 1 tab PO DAILY 02/05/15 [History] Multivitamin with Minerals [Myvitalife] 1 cap PO DAILY 03/31/15 [History] Lidocaine/Prilocaine CREAM [Emla] 1 appl TP AD #1 tube 06/28/15 [Rx] Prochlorperazine Maleate [Compazine] 10 mg PO Q6HR PRN #60 tablet 06/28/15 [Rx] Gabapentin [Neurontin] 300 mg PO QAM 08/27/16 [History] Gabapentin [Neurontin] 600 mg PO HS 08/27/16 [History] Venlafaxine HCl [Venlafaxine HCl ER] 150 mg PO HS 08/27/16 [History] Allergies No Known Allergies Allergy (Verified 07/31/16 13:57) All Systems Review: A 10-system review of systems was performed and is negative for pertinent findings except as documented above in the HPI. Physical Examination Vital Signs, Last 4 Hours Temp Pulse Resp BP Pulse Ox 08/29/16 06:48 98.6 F 106 18 119/88 97 08/29/16 06:00 90 16 107/61 96 General: Conversant, No Apparent Distress, Other (anxious appearing.) HEENT: Atraumatic, Normocephaly, Mucus Membranes Moist Neck: No JVD, Normal carotid pulses Cardiac: Reg Rate and Rhythm, Normal S1 and S2, No Murmur Lungs: Normal Breath Sounds, No Wheeze, Rales, Rhonchi Neuro: Alert and responsive, No focal deficits noted Abdomen: Soft, Non-Tender Skin: No rashes noted on visualized skin Musculoskeletal: No Chest Wall Tenderness Extremities: No Clubbing, No Cyanosis, No Edema, Normal Pulses Results 08/28/16 19:16 08/28/16 19:16 Lab Results 08/28/16 08/28/16 08/28/16 19:16 19:16 Unknown WBC 1.6 L Hgb 11.5 Hct 32.3 L Plt Count 103 L Sodium 140 Potassium 3.5 Chloride 108 Carbon Dioxide 23 BUN 6 L Creatinine 0.64 Glucose 130 H Calcium 9.1 Magnesium 2.2 Total Bilirubin 0.6 AST 26 ALT 37 Alkaline Phosphatase 60 Troponin I 0.00 - Imaging and Cardiology Echo: pending - EKG Interpretation EKG results cardiology: personally reviewed (SVT, HR [address] changes.) Consult Discharge Plan - Plan Referrals: Vandana Alvarez MD [Partnered Physician] - 09/08/16 3:50 pm Johnnie Amaya MD [Primary Care Provider] -
[2016-08-29 10:50] LABS: Thyroid Stimulating Hormone 1.997 mcIU/mL (0.350-4.840)
[2016-08-29] MEDS ORDERED: Fluconazole 100 MG TABLET PO ONE (11:05)
--- NOTE | 2016-08-29 11:36 | Internal Med Progress Note ---
Date of Encounter: 08/29/16 Time of Encounter: 10:55 - Assessment and plan (1) SVT (supraventricular tachycardia) Current Visit: Yes Status: Acute Assessment and plan: No recurrent episodes reported Cardiology eval appreciated started on BB f/u 2D echo will continue telemonitoring and continue to closely monitor (2) Urinary tract infection Current Visit: Yes Status: Acute Assessment and plan: Urine cultures positive for ESBL will continue Ertapenem Patient will likely be discharged with IV abx One time dose of Fluconazole 150mg PO given for yeast infection Qualifiers: Urinary tract infection type: acute cystitis Hematuria presence: with hematuria Qualified Code(s): N30.01 - Acute cystitis with hematuria (3) Immunosuppressed due to chemotherapy Current Visit: Yes Status: Acute Assessment and plan: Oncology eval appreciated will start Neupogen given the ANC count today will continue to closely monitor continue Pain control (4) Metastatic breast cancer Current Visit: Yes Status: Acute Assessment and plan: Oncology eval appreciated further chemo after discharge started neupogen today (5) Hypophosphatemia Current Visit: Yes Status: Acute Assessment and plan: Phos supplemented will continue to monitor electrolytes and replace as needed (6) DVT prophylaxis Current Visit: Yes Status: Acute Assessment and plan: Lovenox SQ - Subjective Interval history: Patient seen and examined at bedside. Resting in bed and reports of feeling better compared to the previous day. Denies any prior cardiac history. No recurrent episodes of SVT reported. REports of vaginal itchiness consistent with her prior yeast infections. Also was started on Neupogen this morning and reports of diffuse body aches. Denies any chest pain, sob, palpitations at this time. - Constitutional Vitals: Temp Pulse Resp BP Pulse Ox 98.6 F 106 18 119/88 97 08/29/16 06:48 08/29/16 06:48 08/29/16 06:48 08/29/16 06:48 08/29/16 06:48 General appearance: Present: A&O X 3, pleasant, no acute distress, answers questions appropriately - Head Head exam: Present: atraumatic, normocephalic - Eye Eye exam: Present: PERRL, conjuntiva pink, sclera anicteric - Respiratory Respiratory exam: Present: CTAB. Absent: accessory muscle use, rales, rhonchi, wheezes - Cardiovascular Cardiovascular exam: Present: RRR, +S1, +S2, tachycardia Additional comments: right chest wall chemoport in place, s/p bilateral mastectomy - GI/Abdominal GI/Abdominal exam: Present: normal bowel sounds, soft, no peritoneal signs. Absent: distended, tenderness - Extremities Exam Extremities exam: Present: warm, radial pulses palpable and symetrical. Absent : calf tenderness, pedal edema - Neurological Exam Neurological exam: Present: alert, oriented X3 - Psychiatric Psychiatric exam: Present: normal affect, normal mood Internal Medicine: Result - Labs CBC & Chem 7: 08/28/16 19:16 08/28/16 19:16 Labs: Short CBC 08/28/16 Range/Units 19:16 WBC 1.6 L (4.3-11.1) K/mcL Hgb 11.5 (11.5-15.4) g/dL Hct 32.3 L (35.3-44.9) % Plt Count 103 L (140-400) K/mcL Neutrophils # 0.4 L (1.6-8.9) K/mcL BMP 08/28/16 19:16 Sodium 140 Potassium 3.5 Chloride 108 Carbon Dioxide 23 BUN 6 L Creatinine 0.64 Glucose 130 H Calcium 9.1 Cardiac Enzymes 08/28/16 Range/Units Unknown Troponin I 0.00 (0-0.03) ng/mL Liver Function 08/28/16 Range/Units 19:16 Total Bilirubin 0.6 (0.2-1.2) mg/dL AST 26 (5-34) Units/L ALT 37 (0-55) Units/L Alkaline Phosphatase 60 (38-126) Units/L Albumin 3.8 (3.5-5.0) g/dL - ABG Interpretation ABG results: PT/INR, D-dimer PT 11.6 Seconds (9.4-12.1) 08/27/16 10:29 Consult Discharge Plan - Plan Referrals: Vandana Alvarez MD [Partnered Physician] - 09/08/16 3:50 pm Johnnie Amaya MD [Primary Care Provider] - (SEND WEB REQUEST ON 08-29-16 @ 2187)
[2016-08-29] MEDS: *HR* HYDROcodone/Acet 5/325 mg TABLET PO PRN (16:43)
--- NOTE | 2016-08-29 17:36 | Electrocardiograph Report ---
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
[2016-08-29] MEDS: Venlafaxine XR (24 HR) 150 MG CAP.ER.24H PO SCH (21:39)
[2016-08-29] MEDS: Gabapentin 300 MG CAPSULE PO SCH (21:39)
[2016-08-29] MEDS ORDERED: Perflutren Lipid Microsphere 1.3 ML in 0.9 % Sodium Chloride 8.7 ML IVP ONE (22:09)
[2016-08-30] MEDS: 0.9 % Sodium Chloride 1,000 ML IVC SCH ×3 (01:00→20:45)
[2016-08-30] MEDS: Ertapenem 1,000 MG in 0.9 % Sodium Chloride Mini Bag 100 ML IVPB SCH (08:31)
[2016-08-30] MEDS: Vitamin B Complex/Vit C/Vit E 1 EACH TABLET PO SCH (08:31)
[2016-08-30] MEDS: Cyanocobalamin (B-12) 1,000 MCG TABLET PO SCH (08:31)
[2016-08-30] MEDS: Multivit/Ca/Min/Fe/FA 1 TAB TABLET PO SCH (08:32)
--- NOTE | 2016-08-30 08:40 | Cardiology Progress Note ---
Date of Encounter: 08/30/16 Time of Encounter: 08:39 Assessment and Plan (1) SVT (supraventricular tachycardia) Current Visit: Yes Status: Acute SVT, HR 230's, in the setting of infection and chemotherapy. No previous history. Responded to 6mg adenosine. Now tachycardic in the setting of infection. HR will likely improve with IV antibiotic and metoprolol. Encourage hydration. Avg HR 94 bpm over 24 hours. On IV metoprolol PRN. Increase metoprolol to 25 mg BID. No recurrent SVT TTE EF 60%, no significant valvular disease. TSH normal. [facility] will facilitate f/u in 2 weeks. Discussion w patient/family: The assessment and plan as outlined above was discussed with the patient and/or family members who expressed understanding and agreement. All questions were answered. Thank you for involving us in the care of your patient. Please call with any questions. Results 08/30/16 08:35 08/30/16 08:35 Lab Results 08/28/16 19:16 TSH 1.997 - EKG Interpretation EKG results cardiology: other (24 hour telemetry review showed AVg HR 96 bpm. HR 110 this morning, sinus tachycardia.) Consult Discharge Plan - Plan Referrals: Vandana Alvarez MD [Partnered Physician] - 09/08/16 3:50 pm Johnnie Amaya MD [Primary Care Provider] - 09/06/16 11:00 am ()
[2016-08-30] MEDS: Acetaminophen 325 MG TABLET PO PRN ×2 (08:47→19:33)
[2016-08-30 09:07] LABS: Red Cell Distribution Width 15.9 % (11.5-14.5)
[2016-08-30 09:08] LABS: Basophils % 2.1 %; Eosinophils # 0.2 K/mcL (0.0-0.6); Eosinophils % 11.1 %; Hematocrit 31.5 % (35.3-44.9); Immature Granulocytes % 6.9 % (0-4); Lymphocytes # 0.8 K/mcL (0.6-4.6); Lymphocytes % 53.5 %; Mean Corpuscular HGB Conc 34.9 g/dL (31.6-35.5); Mean Corpuscular Volume 91.6 fL (83.0-100.0); Mean Platelet Volume 10.1 fL (9.4-12.4); Monocytes # 0.1 K/mcL (0.0-1.3); Monocytes % 7.6 %; Neutrophils # 0.3 K/mcL (1.6-8.9); Platelet Count 153 K/mcL (140-400); Red Blood Count 3.44 M/mcL (3.82-4.97); Segmented Neutrophils % 18.8 %
[2016-08-30 09:23] LABS: BUN/Creatinine Ratio 8 (6-26); Calcium 9.4 mg/dL (8.6-10.8); Carbon Dioxide 24 mEq/L (19-29); Chloride 106 mEq/L (98-109); Glucose 113 mg/dL (70-99); Osmolality,Calculated 286 (280-300); Potassium 3.9 mEq/L (3.5-4.5); Sodium 139 mEq/L (136-145); eGFR For African Americans > 60 (> 60); eGFR For Non-African Americans > 60 (> 60)
[2016-08-30 09:25] LABS: Blood Urea Nitrogen 5 mg/dL (7-20)
[2016-08-30 09:27] LABS: Platelet Estimate Normal (Normal); Reactive Lymphocytes Present (Not Present)
--- NOTE | 2016-08-30 09:47 | ECHO - Doppler Report ---
Echo with Imaging Enhancement Agent Name: Micaela Urbina Date of Study: 08/29/2016 Date: 1970 Ht: 61.0 in Medical Record#: [id number] Age: 46 Wt: 125.0 lb Gender: Female BSA: 1.55 Order #: [id number] Location: [facility] Room #: 2NO2 Reading Physician: Ira Nash DO Automatic Pilot Mechanic: Frida Fine Ordering Physician: Yelena Monzon MD Primary Physician: Johnnie Amaya MD Indications: Evaluate LVEF Impressions: LVEF 60%. Normal left ventricular size and systolic function. Normal diastolic function of the left ventricle. Normal right ventricular size and function. No significant valvular dysfunction. No pulmonary hypertension. Left Ventricular Wall Motion: Rest Echo Findings All wall segments showed normal motion. Findings: Study Quality * Technically adequate exam. ECG Findings * Normal sinus rhythm. Left Ventricle * LVEF 60%. * Normal LV chamber size, wall thickness and function. * Normal left ventricular diastolic function. Aortic Valve * No aortic regurgitation. * Aortic valve not well visualized. * No aortic stenosis. Mitral Valve * No mitral regurgitation. * Normal mitral valve structure. * No mitral stenosis. Tricuspid Valve * Tricuspid valve not well visualized. * No tricuspid regurgitation. * Estimated RA pressure is 3 mmHg. Pulmonic Valve * Pulmonic valve is not well visualized. * No pulmonic stenosis. * No pulmonic regurgitation. Pulmonary Artery * Pulmonary artery not well visualized. Right Ventricle * Normal right ventricular structure and function. Interatrial Septum * No evidence of PFO by color Doppler. IVC * Normal IVC dimensions and inspiratory collapse. Pericardium * There is no pericardial effusion present. Aorta * Not well visualized. Left Atrium * Normal left atrial size. Right Atrium * Normal right atrial size. History Contrast: Definity 1.3 ml in 8.7 ml of saline 5 ml. Measurements: BP: 112/ 80 2D Normal Values RVIDd: 3.10 cm <2.7 cm IVSd: .70 cm 0.6 - 1.0 cm LVIDd: 4.80 cm 3.7 - 5.6 cm LVPWd: 1.00 cm 0.6 - 1.1 cm LVIDs: 3.40 cm 1.5 - 3.6 cm AO: 2.60 cm < 4.0 cm LA: 2.90 cm 2.0 - 4.0cm %FS: 29.20 cm >25 % LA volume: 17 Mitral Valve Peak E:.66 m/sec Peak A:.58 m/sec E/A Ratio:1.1 Updated by Ira Nash on 08/30/2016 9:41:51 AM electronically signed on 08/30/2016 9:42:31 AM with status of Final Wall Motion Dutton: 1=Normal, 2=Hypokinesis, 3=Akinesis, 4=Dyskinesis, 5=Aneurysmal, 6=Hyperkinetic, X=Not Visualized (Blank)=Missing
--- NOTE | 2016-08-30 12:03 | Internal Med Progress Note ---
Date of Encounter: 08/30/16 Time of Encounter: 12:01 - Assessment and plan (1) SVT (supraventricular tachycardia) Current Visit: Yes Status: Acute Assessment and plan: No recurrent episodes reported Cardiology eval appreciated Increased Metoprolol to 25mg PO BID will continue telemonitoring and continue to closely monitor Likely d/c in am given better rate control (2) Urinary tract infection Current Visit: Yes Status: Acute Assessment and plan: Urine cultures positive for ESBL will continue Ertapenem Patient will likely be discharged with IV abx Qualifiers: Urinary tract infection type: acute cystitis Hematuria presence: with hematuria Qualified Code(s): N30.01 - Acute cystitis with hematuria (3) Immunosuppressed due to chemotherapy Current Visit: Yes Status: Acute Assessment and plan: Oncology eval appreciated continue Neupogen given the ANC count today will continue to closely monitor continue Pain control (4) Metastatic breast cancer Current Visit: Yes Status: Acute Assessment and plan: Oncology eval appreciated further chemo after discharge started neupogen today (5) DVT prophylaxis Current Visit: Yes Status: Acute Assessment and plan: Lovenox SQ - Subjective Interval history: Patient seen and examined at bedside. Reports of no discomfort at this time. Noted to require one time dose of Metoprolol IV overnight for rate control. Metoprolol PO dose increased by cardiology today. - Constitutional Vitals: Temp Pulse Resp BP Pulse Ox 96.8 F L 97 16 116/84 96 08/30/16 11:36 08/30/16 11:36 08/30/16 11:36 08/30/16 11:36 08/30/16 11:36 General appearance: Present: A&O X 3, pleasant, no acute distress, answers questions appropriately - Head Head exam: Present: atraumatic, normocephalic - Eye Eye exam: Present: normal appearance, conjuntiva pink, sclera anicteric - Respiratory Respiratory exam: Present: CTAB. Absent: accessory muscle use, rales, rhonchi, wheezes - Cardiovascular Cardiovascular exam: Present: RRR, +S1, +S2. Absent: diastolic murmur, gallop, rubs, systolic murmur Additional comments: right chest wall chemoport - GI/Abdominal GI/Abdominal exam: Present: normal bowel sounds, soft, no peritoneal signs. Absent: distended, tenderness - Extremities Exam Extremities exam: Present: warm, radial pulses palpable and symetrical. Absent : calf tenderness, cyanotic, pedal edema - Neurological Exam Neurological exam: Present: alert, oriented X3, no focal deficits - Psychiatric Psychiatric exam: Present: normal affect, normal mood Internal Medicine: Result - Labs CBC & Chem 7: 08/30/16 08:35 08/30/16 08:35 Labs: Short CBC 08/30/16 Range/Units 08:35 WBC 1.4 L (4.3-11.1) K/mcL Hgb 11.0 L (11.5-15.4) g/dL Hct 31.5 L (35.3-44.9) % Plt Count 153 (140-400) K/mcL Neutrophils # 0.3 L (1.6-8.9) K/mcL BMP 08/30/16 08:35 Sodium 139 Potassium 3.9 Chloride 106 Carbon Dioxide 24 BUN 5 L Creatinine 0.63 Glucose 113 H Calcium 9.4 - ABG Interpretation ABG results: PT/INR, D-dimer PT 11.6 Seconds (9.4-12.1) 08/27/16 10:29 Consult Discharge Plan - Plan Referrals: Vandana Alvarez MD [Partnered Physician] - 09/08/16 3:50 pm Johnnie Amaya MD [Primary Care Provider] - 09/06/16 11:00 am ()
[2016-08-30] MEDS: *HR* HYDROcodone/Acet 5/325 mg TABLET PO PRN (15:13)
[2016-08-30] MEDS: Ondansetron ODT 4 MG TAB.RAPDIS SL PRN (17:25)
[2016-08-30] MEDS: Venlafaxine XR (24 HR) 150 MG CAP.ER.24H PO SCH (21:10)
[2016-08-30] MEDS: Gabapentin 300 MG CAPSULE PO SCH (21:10)
[2016-08-31] MEDS: *HR* HYDROcodone/Acet 5/325 mg TABLET PO PRN ×2 (03:22→07:33)
[2016-08-31 04:07] LABS: Eosinophils # 0.2 K/mcL (0.0-0.6); Hemoglobin 10.4 g/dL (11.5-15.4); Mean Corpuscular HGB Conc 34.7 g/dL (31.6-35.5); Mean Corpuscular Hemoglobin 31.7 pg (28.0-33.3); Mean Corpuscular Volume 91.5 fL (83.0-100.0); Mean Platelet Volume 10.3 fL (9.4-12.4); Platelet Count 177 K/mcL (140-400); Red Blood Count 3.28 M/mcL (3.82-4.97); Red Cell Distribution Width 15.8 % (11.5-14.5)
[2016-08-31 04:30] LABS: BUN/Creatinine Ratio 6 (6-26); Calcium 9.3 mg/dL (8.6-10.8); Carbon Dioxide 23 mEq/L (19-29); Chloride 107 mEq/L (98-109); Glucose 87 mg/dL (70-99); Magnesium 1.8 mg/dL (1.6-2.6); Osmolality,Calculated 284 (280-300); Phosphorous 1.9 mg/dL (2.3-4.7); Potassium 3.9 mEq/L (3.5-4.5); Sodium 139 mEq/L (136-145); eGFR For African Americans > 60 (> 60); eGFR For Non-African Americans > 60 (> 60)
[2016-08-31 04:32] LABS: Blood Urea Nitrogen 4 mg/dL (7-20)
[2016-08-31 04:33] LABS: Lymphocytes # 1.6 K/mcL (0.6-4.6); Monocytes # 0.2 K/mcL (0.0-1.3); Neutrophils # 0.4 K/mcL (1.6-8.9)
[2016-08-31 04:35] LABS: Large Platelets Present (Not Present); Platelet Estimate Normal (Normal); Reactive Lymphocytes Present (Not Present)
[2016-08-31] MEDS: *HR* Enoxaparin 40 MG/0.4 ML SYRINGE SQ SCH (05:17)
[2016-08-31] MEDS: 0.9 % Sodium Chloride 1,000 ML IVC SCH ×2 (06:20→16:59)
[2016-08-31] MEDS: Ertapenem 1,000 MG in 0.9 % Sodium Chloride Mini Bag 100 ML IVPB SCH (07:27)
[2016-08-31] MEDS ORDERED: Sodium Phosphate 30 MMOL in D5% in Water 100 ML IVPB ONE (07:49)
[2016-08-31] MEDS: Cyanocobalamin (B-12) 1,000 MCG TABLET PO SCH (08:05)
[2016-08-31] MEDS: Vitamin B Complex/Vit C/Vit E 1 EACH TABLET PO SCH (08:05)
[2016-08-31] MEDS: Multivit/Ca/Min/Fe/FA 1 TAB TABLET PO SCH (08:05)
[2016-08-31] MEDS: Ondansetron ODT 4 MG TAB.RAPDIS SL PRN (09:11)
[2016-08-31] MEDS ORDERED: *HR* HYDROcodone/Acet 5/325 mg TABLET PO PRN (11:03)
[2016-08-31] MEDS ORDERED: Ketorolac 30 MG/ML VIAL IVP ONE (11:39)
[2016-08-31] MEDS ORDERED: *HR* HYDROmorphone (PF) 1 MG/ML SYRINGE IVP ONE (11:43)
--- NOTE | 2016-08-31 12:01 | Internal Med Progress Note ---
Date of Encounter: 08/31/16 Time of Encounter: 11:15 - Assessment and plan (1) SVT (supraventricular tachycardia) Current Visit: Yes Status: Acute Assessment and plan: Currently tachycardic due to severe pain will control pain and continue Metoprolol 25mg BID continue tele monitoring (2) Urinary tract infection Current Visit: Yes Status: Acute Assessment and plan: Urine cultures positive for ESBL will continue Ertapenem (Day 4/14) Patient will likely be discharged with IV abx Qualifiers: Urinary tract infection type: acute cystitis Hematuria presence: with hematuria Qualified Code(s): N30.01 - Acute cystitis with hematuria (3) Immunosuppressed due to chemotherapy Current Visit: Yes Status: Acute Assessment and plan: Oncology eval appreciated continue Neupogen given the ANC count today will continue to closely monitor continue Pain control (changed to Oxycodone 10/325 PO q4h for moderate pain and Dilaudid 0.5mg IV q4h for severe pain) awaiting follow up with Dr. Alvarez in regards to continuation of Neupogen given worsening body aches/pain (4) Metastatic breast cancer Current Visit: Yes Status: Acute Assessment and plan: Oncology eval appreciated further chemo after discharge (5) DVT prophylaxis Current Visit: Yes Status: Acute Assessment and plan: Lovenox SQ (6) Electrolyte abnormality Current Visit: Yes Status: Acute Assessment and plan: Hypophosphatemia PHos supplemented continue to monitor electrolytes and replace as needed - Subjective Interval history: Patient seen and examined at bedside. Patient reports of being in excrutiating diffuse body pain and is in tears. Received Hydrocodone 2tabs without adequate relief. States she gets palpitations with morphine. Will try small dose of Dilaudid for pain control - Constitutional Vitals: Temp Pulse Resp BP Pulse Ox 98.2 F 78 16 123/88 96 08/31/16 07:40 08/31/16 11:48 08/31/16 07:40 08/31/16 07:40 08/31/16 03:32 General appearance: Present: mild distress (painful distress), A&O X 3, pleasant , answers questions appropriately - Head Head exam: Present: atraumatic, normocephalic - Eye Eye exam: Present: normal appearance, conjuntiva pink, sclera anicteric - Respiratory Respiratory exam: Present: CTAB. Absent: accessory muscle use, rales, rhonchi, wheezes - Cardiovascular Cardiovascular exam: Present: +S1, +S2, tachycardia Additional comments: right chest wall chemoport - GI/Abdominal GI/Abdominal exam: Present: normal bowel sounds, soft, no peritoneal signs. Absent: distended, tenderness - Extremities Exam Extremities exam: Present: warm, radial pulses palpable and symetrical. Absent : calf tenderness, cyanotic, pedal edema - Neurological Exam Neurological exam: Present: alert, oriented X3 - Psychiatric Psychiatric exam: Present: normal affect, normal mood Internal Medicine: Result - Labs CBC & Chem 7: 08/31/16 03:30 08/31/16 03:30 Labs: Short CBC 08/31/16 Range/Units 03:30 WBC 2.4 L D (4.3-11.1) K/mcL Hgb 10.4 L (11.5-15.4) g/dL Hct 30.0 L (35.3-44.9) % Plt Count 177 (140-400) K/mcL Neutrophils # 0.4 L (1.6-8.9) K/mcL BMP 08/31/16 03:30 Sodium 139 Potassium 3.9 Chloride 107 Carbon Dioxide 23 BUN 4 L Creatinine 0.66 Glucose 87 Calcium 9.3 - ABG Interpretation ABG results: PT/INR, D-dimer PT 11.6 Seconds (9.4-12.1) 08/27/16 10:29 Consult Discharge Plan - Plan Referrals: Vandana Alvarez MD [Partnered Physician] - 09/08/16 3:50 pm Johnnie Amaya MD [Primary Care Provider] - 09/06/16 11:00 am () Brian Riley DO [Partnered Physician] - 09/14/16 12:15 pm Prescriptions: Ertapenem [INVanz] 1,000 mg IVPB DAILY #10 vial
[2016-08-31] MEDS: *HR* HYDROmorphone (PF) 1 MG/ML SYRINGE IVP PRN ×2 (14:52→18:56)
--- NOTE | 2016-08-31 16:29 | Event Note ---
Date of Encounter: 08/31/16 Time of Encounter: 12:00 I received a page from RONIT Keith in [facility]. Salud planned discharge today, but her ANC still low at 0.4. Continue daily neupogen as ordered each day. She complained of severe bone pain today. This is a side effect of the neupogen. It is expected. I ordered claritin 10mg PO daily, as this drug is used to treat bone pain side effect of neupogen or neulasta. You can alos treat with narcotics if claritin does not work. The bone pain diminishes after a few days. If medically stable, OK to discharge, as it may take some time for ANC to get above 1.0-1.5. With home antibiotics being set up, this is a preferable environment with neutropenia. We will follow as outpatient. Dr Alvarez advised.
[2016-08-31] MEDS: *HR* OxyCODONE/APAP 10/325 TABLET PO PRN ×2 (16:52→21:10)
--- NOTE | 2016-08-31 19:29 | Oncology Inp Progress Note ---
Date of Encounter: 08/30/16 Time of Encounter: 19:27 (1) Metastatic breast cancer Current Visit: Yes Status: Acute Assessment and plan: 1. Metastatic breast cancer HER-2 positive currently CYCLE 1 Taxotere Herceptin pertuzumab around 08/25/2016 2. Escherichia coli UTI improving on IV antibiotics 3. Neutropenia. Neutrophil augusto at 400. This is expected with Taxotere. Her neutrophils should start to improve around 09/01/2016. Claritin 10 mg by mouth daily for bone pain from Neupogen if needed She should be okay to be discharged with her current neutrophil level. We will check CBC early next week as an outpatient Oncology: Subj Interval history: Heart rate stable on beta jcoe. She feels comfortable. No major fever - Constitutional Vitals: Vital Signs Temp Pulse Resp BP Pulse Ox 08/31/16 19:00 97.6 F 94 20 121/79 08/31/16 16:03 97.7 F 106 17 98 08/31/16 12:51 98.1 F 79 16 118/83 08/31/16 11:48 78 08/31/16 07:40 98.2 F 100 16 123/88 08/31/16 03:32 98.0 F 87 18 123/88 96 08/30/16 23:53 98.1 F 79 16 105/69 96 08/30/16 19:48 90 08/30/16 19:37 97.1 F L 84 16 129/98 99 Intake and Output 08/31/16 08/31/16 08/31/16 07:59 15:59 23:59 Intake Total 1650 / 1650 640 / 640 1000 / 1000 Output Total 400 / 400 0 / 0 Balance 1650 / 1650 240 / 240 1000 / 1000 Intake: IV Fluids 1000 / 1000 1000 / 1000 0.9 % Sodium Chloride 1, 1000 / 1000 1000 / 1000 000 ML @ 100 mls/hr IVC . Q10H SAKINA Rx#:[id number] Oral 650 / 650 640 / 640 Output: Urine 400 / 400 0 / 0 Other: Meal Lunch Percent of Meal Consumed 5% Weight 58.9 kg Patient Weight 08/31/16 23:59 Weight 58.9 kg Exam: GENERAL: Alert and oriented, well appearing. Mental Status: Affect appropriate for circumstances HEENT: Sclerae anicteric. No mucositis or thrush. No other oral or pharyngeal lesions or erythema. Skin: No rashes or petechiae. No evidence of skin malignancy Lymph nodes: No cervical, supraclavicular, axillary, or inguinal adenopathy. Lungs: Clear to auscultation and percussion bilaterally. Cardiovascular: Regular rate and rhythm. No gallops, murmurs, or rubs. Abdomen: Soft, nontender; no organomegaly or masses palpable. Extremities: No edema. No calf swelling or tenderness. No joint deformity. Neurologic: Alert, cranial nerves II-XII intact; normal gait; no focal weakness or sensory abnormalities. Oncology: Obj Data - Labs CBC & Chem 7: 08/31/16 03:30 08/31/16 03:30 Labs: Laboratory Results - last 24 hr 08/31/16 08/31/16 03:30 03:30 WBC 2.4 L D RBC 3.28 L Hgb 10.4 L Hct 30.0 L MCV 91.5 MCH 31.7 MCHC 34.7 RDW 15.8 H Plt Count 177 MPV 10.3 Seg Neutrophils % 16.0 Lymphocytes % 68.0 Monocytes % 8.0 Eosinophils % 8.0 Neutrophils # 0.4 L Lymphocytes # 1.6 Monocytes # 0.2 Eosinophils # 0.2 Reactive Lymphocytes Present A Platelet Estimate Normal Large Platelets Present A Sodium 139 Potassium 3.9 Chloride 107 Carbon Dioxide 23 BUN 4 L Creatinine 0.66 Est GFR ( Amer) > 60 Est GFR (Non-Af Amer) > 60 BUN/Creatinine Ratio 6 Glucose 87 Calculated Osmolality 284 Calcium 9.3 Phosphorus 1.9 L Magnesium 1.8 - ABG Interpretation ABG results: PT/INR, D-dimer PT 11.6 Seconds (9.4-12.1) 08/27/16 10:29 Consult Discharge Plan - Plan Additional Instructions: CBC on Sunday09/04/2016 at [facility]. Referrals: Vandana Alvarez MD [Partnered Physician] - 09/08/16 3:50 pm Johnnie Amaya MD [Primary Care Provider] - 09/06/16 11:00 am () Brian Riley DO [Partnered Physician] - 09/14/16 12:15 pm Prescriptions: Ertapenem [INVanz] 1,000 mg IVPB DAILY #10 vial
[2016-08-31] MEDS: Venlafaxine XR (24 HR) 150 MG CAP.ER.24H PO SCH (21:09)
[2016-08-31] MEDS: Gabapentin 300 MG CAPSULE PO SCH (21:09)
[2016-09-01] MEDS: *HR* OxyCODONE/APAP 10/325 TABLET PO PRN ×2 (01:27→05:40)
[2016-09-01] MEDS: 0.9 % Sodium Chloride 1,000 ML IVC SCH (02:55)
[2016-09-01 03:42] LABS: Hematocrit 28.8 % (35.3-44.9); Mean Corpuscular HGB Conc 34.7 g/dL (31.6-35.5); Mean Corpuscular Hemoglobin 31.4 pg (28.0-33.3); Mean Corpuscular Volume 90.6 fL (83.0-100.0); Platelet Count 184 K/mcL (140-400); Red Blood Count 3.18 M/mcL (3.82-4.97); Red Cell Distribution Width 15.6 % (11.5-14.5)
[2016-09-01 04:03] LABS: BUN/Creatinine Ratio 3 (6-26); Calcium 8.4 mg/dL (8.6-10.8); Carbon Dioxide 26 mEq/L (19-29); Chloride 106 mEq/L (98-109); Glucose 86 mg/dL (70-99); Magnesium 1.6 mg/dL (1.6-2.6); Osmolality,Calculated 287 (280-300); Phosphorous 2.5 mg/dL (2.3-4.7); Potassium 3.6 mEq/L (3.5-4.5); Sodium 141 mEq/L (136-145); eGFR For African Americans > 60 (> 60); eGFR For Non-African Americans > 60 (> 60)
[2016-09-01 04:14] LABS: Blood Urea Nitrogen 2 mg/dL (7-20)
[2016-09-01 04:29] LABS: Basophils # 0.2 K/mcL (0.0-0.2); Lymphocytes # 6.3 K/mcL (0.6-4.6); Monocytes # 1.2 K/mcL (0.0-1.3); Neutrophils # 2.4 K/mcL (1.6-8.9); Platelet Estimate Normal (Normal); Reactive Lymphocytes Present (Not Present); Smudge Cells Present (Not Present); Toxic Granulation Present (Not Present); Toxic Vacuolation Present (Not Present)
[2016-09-01 04:30] LABS: Large Platelets Present (Not Present)
[2016-09-01] MEDS: *HR* Enoxaparin 40 MG/0.4 ML SYRINGE SQ SCH (05:40)
[2016-09-01 07:41] VITALS: BP 121/85
[2016-09-01] MEDS: Vitamin B Complex/Vit C/Vit E 1 EACH TABLET PO SCH (08:02)
[2016-09-01] MEDS: Cyanocobalamin (B-12) 1,000 MCG TABLET PO SCH (08:03)
[2016-09-01] MEDS: Multivit/Ca/Min/Fe/FA 1 TAB TABLET PO SCH (08:05)
[2016-09-01] MEDS: Ertapenem 1,000 MG in 0.9 % Sodium Chloride Mini Bag 100 ML IVPB SCH (08:11)
[2016-09-01] MEDS ORDERED: Loratadine 10 MG TABLET PO SCH (09:00)
--- NOTE | 2016-09-01 09:49 | Discharge Summary ---
Date of Encounter: 09/01/16 Time of Encounter: 09:46 - Discharge Diagnosis (1) SVT (supraventricular tachycardia) Priority: Secondary Status: Resolved (2) Urinary tract infection Priority: Primary Status: Acute Qualifiers: Urinary tract infection type: acute cystitis Hematuria presence: with hematuria Qualified Code(s): N30.01 - Acute cystitis with hematuria (3) Immunosuppressed due to chemotherapy Priority: Secondary Status: Chronic (4) Metastatic breast cancer Priority: Secondary Status: Chronic (5) DVT prophylaxis Priority: Secondary Status: Acute (6) Electrolyte abnormality Priority: Secondary Status: Acute - Discharge Medications Prescriptions: Docusate [Colace] 100 mg PO BID PRN #30 capsule PRN Reason: Constipation Ertapenem [INVanz] 1,000 mg IVPB DAILY #10 vial Loratadine [Claritin] 10 mg PO DAILY #30 tablet Metoprolol [Lopressor] 25 mg PO BID #60 tablet Ondansetron [Zofran] 4 mg PO Q6H PRN #20 tablet PRN Reason: nausea/vomiting OxyCODONE/APAP 10/325 [Percocet 10/325 MG] 1 each PO Q6H PRN #20 tablet PRN Reason: Moderate Pain Home Medications: Calcium Carbonate/Vitamin D3 [Calcium 600 + Vitamin D Sftgl] 1 cap PO BID [History] Duloxetine HCl [Cymbalta] 60 mg PO QAM 12/24/14 [History] LORazepam [Ativan] 1 mg PO Q6H PRN 12/24/14 [History] Cyanocobalamin (Vitamin B-12) [Vitamin B-12] 500 mcg PO DAILY 02/05/15 [History] Vitamin B Complex [B Complex] 1 tab PO DAILY 02/05/15 [History] Multivitamin with Minerals [Myvitalife] 1 cap PO DAILY 03/31/15 [History] Lidocaine/Prilocaine CREAM [Emla] 1 appl TP AD #1 tube 06/28/15 [Rx] Prochlorperazine Maleate [Compazine] 10 mg PO Q6HR PRN #60 tablet 06/28/15 [Rx] Gabapentin [Neurontin] 300 mg PO QAM 08/27/16 [History] Gabapentin [Neurontin] 600 mg PO HS 08/27/16 [History] Venlafaxine HCl [Venlafaxine HCl ER] 150 mg PO HS 08/27/16 [History] Ertapenem [INVanz] 1,000 mg IVPB DAILY #10 vial 08/30/16 [Rx] Docusate [Colace] 100 mg PO BID PRN #30 capsule 09/01/16 [Rx] Loratadine [Claritin] 10 mg PO DAILY #30 tablet 09/01/16 [Rx] Metoprolol [Lopressor] 25 mg PO BID #60 tablet 09/01/16 [Rx] Ondansetron [Zofran] 4 mg PO Q6H PRN #20 tablet 09/01/16 [Rx] OxyCODONE/APAP 10/325 [Percocet 10/325 MG] 1 each PO Q6H PRN #20 tablet [Rx] Allergies/Adverse Reactions: Allergies No Known Allergies Allergy (Verified 07/31/16 13:57) Date of admission: 08/27/16 11:59 Primary care physician: Johnnie Amaya MD Consults: 08/28/16 09:08 Consult to Oncology Hematology [CONS] Routine Consulting Provider: Rossy Recio Reason for Consult: Breast cancer/ leukopenia/ recent chemo Time Notified: 09:09 Call Completed: Yes 08/29/16 07:26 Consult to Cardiology [CONS] Stat Comment: Consulting Provider: Jerardo Lopez Reason for Consult: SVT Call Completed: Yes Discharging clinician: Yelena Monzon Anticipated date of discharge: 09/01/16 - Patient Status Disposition: Home Health Service Condition: Good Functional capacity at discharge: independent ambulation Overall status at discharge: patient is back to baseline - Ambulatory Orders Ambulatory Orders: Complete Blood Count [HEME] Time Frame: 1 Week, Facility: [facility], [facility] - Discharge Instructions Follow Up With: Vandana Alvarez MD [Partnered Physician] - 09/08/16 3:50 pm Johnnie Amaya MD [Primary Care Provider] - 09/06/16 11:00 am () Brian Riley DO [Partnered Physician] - 09/14/16 12:15 pm Additional Instructions: Please follow up with your primary care physician within one week after your discharge from the hospital. Please follow up with your oncologist on Sunday and have your lab work done at the cancer center on Sunday.(09/04/16) Please follow up with Cardiology within one week after your discharge from the hospital. Metoprolol 25mg twice a day has been added to your home medications. Please take this medication as prescribed and closely monitor your HR and BP. Do not take this medication if your HR is less than 60. Please continue IV abx for a total of 14 days. surgical services tech have already arranged IV abx set up at your house. Please resume all your other home medications as prescribed by your primary care physician. Claritin was added to your home medication list for severe bone pain. Please take this medication as needed. . - Diet and Activity Activity: increase activity as tolerated Diet: advance to your usual diet Hospital course: Ms. Urbina is a 46 year old female with PMH Of metastatic breast ca currently on chemotherapy who was admitted for management of UTI. She was started on empiric IV abx therapy and therapy was adjusted as per urine cultures. Her hospital course was further complicated with SVT. She was further evaluated by cardiology and patient responded well on medical management. She was also noted to be neutropenic for which she was started on Neupogen. She responded well to therapy. Her urine cultures were positive for ESBL for which she is to continue IV abx for a total of 14days. Home health services have been arranged for IV abx administration. At this time she is hemodynamically stable, rate controlled , ANC within acceptable range. She will be discharged to home with follow up with PCP, CArdiology, and Oncology. Patient demonstrates understanding of her diagnosis and agrees with the discharge care and plan. - Time Spent with Patient Total time spent providing and/or coordinating discharge services: Greater than 30 minutes - Constitutional Vitals: Temp Pulse Resp BP Pulse Ox 98.2 F 105 18 121/85 98 09/01/16 07:38 09/01/16 07:38 09/01/16 07:38 09/01/16 07:38 08/31/16 16:03 General appearance: Present: A&O X 3, pleasant, no acute distress, answers questions appropriately - Head Head exam: Present: atraumatic, normocephalic - Eye Eye exam: Present: normal appearance, PERRL, conjuntiva pink, sclera anicteric - Respiratory Respiratory exam: Present: CTAB. Absent: accessory muscle use, rales, rhonchi, wheezes - Cardiovascular Cardiovascular exam: Present: RRR, +S1, +S2. Absent: diastolic murmur, gallop, rubs, systolic murmur Additional comments: right chest wall chemoport - GI/Abdominal GI/Abdominal exam: Present: normal bowel sounds, soft, no peritoneal signs. Absent: distended, tenderness - Extremities Exam Extremities exam: Present: warm, radial pulses palpable and symetrical. Absent : calf tenderness, cyanotic, pedal edema - Neurological Exam Neurological exam: Present: alert, oriented X3 - Psychiatric Psychiatric exam: Present: normal affect, normal mood
--- NOTE | 2016-09-01 10:56 | Physician Discharge Referral ---
Home Health/Hosp Referral Info Transfer to: Home Health Provider in Charge Post Discharge: PCP - Diagnosis (1) SVT (supraventricular tachycardia) Priority: Secondary Status: Resolved (2) Urinary tract infection Priority: Primary Status: Acute (3) Immunosuppressed due to chemotherapy Priority: Secondary Status: Chronic (4) Metastatic breast cancer Priority: Secondary Status: Chronic (5) DVT prophylaxis Priority: Secondary Status: Acute (6) Electrolyte abnormality Priority: Secondary Status: Acute - Respiratory Orders Smoking Cessation: Smoking cessation has been advised. For more information, call the [place] [facility] Quit Line at 7-617-TJPR-NOW. - Services Needed Following services are medically necessary services: Nursing, Home Health Aide, Home Infusion - Transfer Medications Prescriptions: Docusate [Colace] 100 mg PO BID PRN #30 capsule PRN Reason: Constipation Ertapenem [INVanz] 1,000 mg IVPB DAILY #10 vial Loratadine [Claritin] 10 mg PO DAILY #30 tablet Metoprolol [Lopressor] 25 mg PO BID #60 tablet Ondansetron [Zofran] 4 mg PO Q6H PRN #20 tablet PRN Reason: nausea/vomiting OxyCODONE/APAP 10/325 [Percocet 10/325 MG] 1 each PO Q6H PRN #20 tablet PRN Reason: Moderate Pain Home Medications: Calcium Carbonate/Vitamin D3 [Calcium 600 + Vitamin D Sftgl] 1 cap PO BID [History] Duloxetine HCl [Cymbalta] 60 mg PO QAM 12/24/14 [History] LORazepam [Ativan] 1 mg PO Q6H PRN 12/24/14 [History] Cyanocobalamin (Vitamin B-12) [Vitamin B-12] 500 mcg PO DAILY 02/05/15 [History] Vitamin B Complex [B Complex] 1 tab PO DAILY 02/05/15 [History] Multivitamin with Minerals [Myvitalife] 1 cap PO DAILY 03/31/15 [History] Lidocaine/Prilocaine CREAM [Emla] 1 appl TP AD #1 tube 06/28/15 [Rx] Prochlorperazine Maleate [Compazine] 10 mg PO Q6HR PRN #60 tablet 06/28/15 [Rx] Gabapentin [Neurontin] 300 mg PO QAM 08/27/16 [History] Gabapentin [Neurontin] 600 mg PO HS 08/27/16 [History] Venlafaxine HCl [Venlafaxine HCl ER] 150 mg PO HS 08/27/16 [History] Ertapenem [INVanz] 1,000 mg IVPB DAILY #10 vial 08/30/16 [Rx] Docusate [Colace] 100 mg PO BID PRN #30 capsule 09/01/16 [Rx] Loratadine [Claritin] 10 mg PO DAILY #30 tablet 09/01/16 [Rx] Metoprolol [Lopressor] 25 mg PO BID #60 tablet 09/01/16 [Rx] Ondansetron [Zofran] 4 mg PO Q6H PRN #20 tablet 09/01/16 [Rx] OxyCODONE/APAP 10/325 [Percocet 10/325 MG] 1 each PO Q6H PRN #20 tablet [Rx] Allergies/Adverse Reactions: Allergies No Known Allergies Allergy (Verified 07/31/16 13:57) Certification: Further, I certify that my clinical findings support that this patient is homebound (i.e. absences from home require considerable and taxing effort and are for medical reasons or orthodox services or infrequently or short duration when for other reasons) because: Homebound Reason: Patient requires assistance of a person or device to safely leave home Attestation: My signature below is to certify that this patient is under my care and that I, or nurse practitioner, or a physician's assistant art director working with me, has a face-to -face encounter with this patient.
--- NOTE | 2016-09-01 16:55 | Electrocardiograph Report ---
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
== END 2016-09-01 11:57 | disposition home health service (06) ==
LOC: 3ANU 09:43 → EMEROO 09:43 → SUATTDRO 11:59 → 3ANU 12:30 → ICNU 08-28 19:49 → 2NNU 08-29 06:54
PROVIDERS: ADMIT Internal Medicine; ATTEND Internal Medicine

== ENCOUNTER 2017-03-05 17:35 | Inpatient (IN) ==
[2017-03-05] MEDS ORDERED: 0.9 % Sodium Chloride 1,000 ML IVC ONE (18:04)
[2017-03-05] MEDS ORDERED: Piperacillin/Tazobactam 4.5 GM in D5% in Water (Mini-Bag+) 100 ML IVPB ONE (18:06)
[2017-03-05] MEDS ORDERED: Levofloxacin 750 MG/150 ML 750 MG/150 ML BAG IVPB ONE (18:06)
--- NOTE | 2017-03-05 18:09 | Emergency Department Note ---
Disposition Clinical Impression: Sepsis Qualifiers: Sepsis type: sepsis due to unspecified organism Qualified Code(s): A41.9 - Sepsis, unspecified organism Pneumonia Qualifiers: Pneumonia type: due to unspecified organism Laterality: unspecified laterality Lung location: unspecified part of lung Qualified Code(s): J18.9 - Pneumonia, unspecified organism Urinary tract infection Qualifiers: Indwelling urinary catheter type: unspecified Encounter type: initial encounter Disposition: Admitted As Inpatient Condition: Fair Referrals: Johnnie Amaya MD [Primary Care Provider] - Forms: ED Satisfaction Letter General Adult HPI - General Chief complaint: ED Weakness Stated complaint: sent from [facility], "septic" Time Seen by Provider: 03/05/17 18:04 Source: patient Limitations: no limitations Nursing Notes Reviewed: Yes Vital Signs Reviewed: Yes - History of Present Illness HPI Narrative: 46-year-old female with a history of metastatic breast cancer currently taking chemotherapy for approximately 7 years presents to the emergency department with difficulty urinating. I spoke with the patient's cancer doctor she was seen at the clinic and was concerned arches for UTI but possible urosepsis. Apparently patient has a history of the same. She has been admitted to the hospital for this in the past. He suggested bringing her in to do a workup for urosepsis and then admission to the hospital. Patient herself has had fevers and chills. Denies abdominal pain. She has had a very strong smell to her urine. Onset (ago): day(s) Radiation: non-radiation Pain Scale: 0 Consistency: constant Worsens with: nothing Associated symptoms: Reports: weakness Treatments Prior to Arrival: none - Related Data Home Medications Medication Instructions Recorded Confirmed Calcium Carbonate/Vitamin D3 1 cap PO BID 12/24/14 03/05/17 [Calcium 600 + Vitamin D Sftgl] Duloxetine HCl [Cymbalta] 60 mg PO QAM 12/24/14 03/05/17 Multivitamin with Minerals 1 cap PO DAILY 03/31/15 03/05/17 [Myvitalife] Capecitabine [Xeloda] 1,500 mg PO BID 03/05/17 03/05/17 Cyclobenzaprine [Flexeril] 5 mg PO HS PRN 03/05/17 03/05/17 Gabapentin [Neurontin] 600 mg PO HS 03/05/17 03/05/17 Oxycodone HCl 10 - 20 mg PO Q6H PRN 03/05/17 03/05/17 Previous Rx's Medication Instructions Recorded Docusate [Colace] 100 mg PO BID PRN #30 capsule 09/01/16 Omeprazole [PriLOSEC] 20 mg PO DAILY #30 cap 09/13/16 Ondansetron [Zofran] 4 mg PO Q6H PRN #20 tablet 09/13/16 Prochlorperazine Maleate 10 mg PO Q6HR PRN #60 tablet 09/13/16 [Compazine] LORazepam [Ativan] 1 mg PO BID #60 tablet 01/22/17 Dronabinol [Marinol] 10 mg PO BID #60 capsule 01/30/17 FentaNYL PATCH [Duragesic] 75 mcg TD Q72H #10 patch.td72 01/30/17 Venlafaxine HCl [Venlafaxine HCl 150 mg PO HS #30 01/30/17 ER] Allergies Allergy/AdvReac Type Severity Reaction Status Date / Time No Known Allergies Allergy Verified 03/05/17 16:55 All systems ED: reviewed and negative except as stated. Constitutional: Reports: as per HPI Eyes: Reports: as per HPI ENT ED: Reports: as per HPI Cardiovascular: Reports: as per HPI Respiratory: Reports: as per HPI Gastrointestinal: Reports: as per HPI Genitourinary: Reports: as per HPI, dysuria Musculoskeletal: Reports: as per HPI Integumentary: Reports: as per HPI Past Medical History - Past Medical History Attestation: Yes The following information was validated with the patient. Medical history: Reports: cancer, kidney stones Surgical history: Reports: cancer surgery, ROSIE/BSO Psychiatric history: Reports: anxiety, depression - Social History Smoking Status: Never smoker Smokeless Tobacco Status: No Alcohol use: Reports: none Drug use: Reports: none Physical Exam - General Limitations: no limitations General appearance: alert, in no apparent distress - Head Head exam: atraumatic - Eye Eye exam: Present: normal appearance - ENT ENT exam: normal exam - Neck Neck exam: Present: normal inspection - Chest Chest inspection: Present: normal inspection - Respiratory Respiratory exam: Present: normal lung sounds bilaterally - Cardiovascular Cardiovascular exam: Present: regular rate, normal rhythm - Abdominal Exam Abdominal exam: Present: soft, Non-Tender - Extremities Exam Extremities exam: Present: normal inspection - Neurological Exam Neurological exam: Present: alert, oriented X3 - Psychiatric Psychiatric exam: Present: normal affect, normal mood - Skin Skin exam: Present: warm, dry, intact Course Vital Signs Temperature 98.2 F 03/05/17 17:38 Pulse Rate 117 03/05/17 17:38 Respiratory Rate 16 03/05/17 17:38 Blood Pressure 150/85 03/05/17 17:38 O2 Sat by Pulse Oximetry 100 03/05/17 17:38 Temperature 98.2 F 03/05/17 17:38 Pulse Rate 117 03/05/17 17:38 Respiratory Rate 16 03/05/17 17:38 Blood Pressure 150/85 03/05/17 17:38 O2 Sat by Pulse Oximetry 97 03/05/17 19:33 Oxygen Delivery Oxygen Delivery Room Air Medical Decision Making - MDM Narrative Medical decision making narrative: We will do workup for sepsis start her on IV antibiotics and get patient admitted to the hospital service. CT scan revealed abnormalities in the chest and pneumonia could not be completely excluded. Additionally her urinalysis revealed UTI. Patient was started on multiple antibiotics to help cover whenever she may have. At this point I contact the hospitalist service approximately 8:20 PM to arrange for hospitalization. We will continue with IV antibiotic therapy and fluid resuscitation. Hemodynamically the patient remained stable though mildly tachycardic throughout her stay. - Lab Data Lab results reviewed: Yes I reviewed the patient's lab results. Result diagrams: 03/05/17 19:31 03/05/17 19:31 Lab Results 03/05/17 03/05/17 03/05/17 Range/Units 18:20 19:31 19:31 WBC 7.8 (4.3-11.1) K/mcL RBC 5.10 H (3.82-4.97) M/mcL Hgb 14.6 (11.5-15.4) g/dL Hct 42.7 (35.3-44.9) % MCV 83.7 (83.0-100.0) fL MCH 28.6 (28.0-33.3) pg MCHC 34.2 (31.6-35.5) g/dL RDW 15.2 H (11.5-14.5) % Plt Count 324 (140-400) K/mcL MPV 9.9 (9.4-12.4) fL Immature Gran % 0.3 (0-4) % Seg Neutrophils % 79.2 % Lymphocytes % 14.7 % Monocytes % 5.0 % Eosinophils % 0.4 % Basophils % 0.4 % Neutrophils # 6.2 (1.6-8.9) K/mcL Lymphocytes # 1.2 (0.6-4.6) K/mcL Monocytes # 0.4 (0.0-1.3) K/mcL Eosinophils # 0.0 (0.0-0.6) K/mcL Basophils # 0.0 (0.0-0.2) K/mcL PT 12.1 (9.4-12.1) Seconds INR 1.1 APTT 32.1 (26.0-36.0) Seconds Sodium (136-145) mEq/L Potassium (3.5-4.5) mEq/L Chloride (98-109) mEq/L Carbon Dioxide (19-29) mEq/L BUN (7-20) mg/dL Creatinine (0.57-1.11) mg/dL Est GFR ( Amer) (> 60) Est GFR (Non-Af Amer) (> 60) BUN/Creatinine Ratio (6-26) Glucose (70-99) mg/dL Calculated Osmolality (280-300) Lactic Acid (0.5-2.2) mmol/L Calcium (8.6-10.8) mg/dL Phosphorus (2.3-4.7) mg/dL Magnesium (1.6-2.6) mg/dL Total Bilirubin (0.2-1.2) mg/dL Direct Bilirubin (0.0-0.5) mg/dL Indirect Bilirubin (0.0-1.2) mg/dL AST (5-34) Units/L ALT (0-55) Units/L Alkaline Phosphatase (38-126) Units/L Troponin I (0-0.03) ng/mL Serum Total Protein (6.0-8.3) g/dL Albumin (3.5-5.0) g/dL Globulin (2.4-3.5) g/dL Albumin/Globulin Ratio (1.1-2.2) Urine Color Dark Yellow (Yellow) Urine Clarity Cloudy A (Clear) Urine pH 6.5 (5.0-8.0) pH Units Ur Specific [place] 1.029 H (1.010-1.025) Urine Protein Trace (Neg-Trace) mg/dL Urine Glucose (UA) Normal (Normal) mg/dL Urine Ketones Trace H (Negative) mg/dL Urine Blood Negative (Negative) Urine Nitrite Positive A (Negative) Urine Bilirubin Small H (Negative) Urine Urobilinogen Normal (Normal) mg/dL Ur Leukocyte Esterase Small H (Negative) Urine Microscopic RBC 3-5 H (0-3) per hpf Urine Microscopic WBC 5-15 H (0-3) per hpf Ur Squamous Epith Cells Many H (None-Few) per lpf Urine Bacteria Many H (None-Few) per hpf Hyaline Casts None Seen (None-Few) per lpf Ur Culture Indicated? YES A (NO) 03/05/17 03/05/17 03/05/17 Range/Units 19:31 19:31 19:31 WBC (4.3-11.1) K/mcL RBC (3.82-4.97) M/mcL Hgb (11.5-15.4) g/dL Hct (35.3-44.9) % MCV (83.0-100.0) fL MCH (28.0-33.3) pg MCHC (31.6-35.5) g/dL RDW (11.5-14.5) % Plt Count (140-400) K/mcL MPV (9.4-12.4) fL Immature Gran % (0-4) % Seg Neutrophils % % Lymphocytes % % Monocytes % % Eosinophils % % Basophils % % Neutrophils # (1.6-8.9) K/mcL Lymphocytes # (0.6-4.6) K/mcL Monocytes # (0.0-1.3) K/mcL Eosinophils # (0.0-0.6) K/mcL Basophils # (0.0-0.2) K/mcL PT (9.4-12.1) Seconds INR APTT (26.0-36.0) Seconds Sodium 138 (136-145) mEq/L Potassium 4.4 (3.5-4.5) mEq/L Chloride 102 (98-109) mEq/L Carbon Dioxide 27 (19-29) mEq/L BUN 16 (7-20) mg/dL Creatinine 0.76 (0.57-1.11) mg/dL Est GFR ( Amer) > 60 (> 60) Est GFR (Non-Af Amer) > 60 (> 60) BUN/Creatinine Ratio 21 (6-26) Glucose 101 H (70-99) mg/dL Calculated Osmolality 287 (280-300) Lactic Acid 1.2 (0.5-2.2) mmol/L Calcium 9.8 (8.6-10.8) mg/dL Phosphorus 2.1 L (2.3-4.7) mg/dL Magnesium 2.3 (1.6-2.6) mg/dL Total Bilirubin 0.4 (0.2-1.2) mg/dL Direct Bilirubin 0.2 (0.0-0.5) mg/dL Indirect Bilirubin 0.2 (0.0-1.2) mg/dL AST 19 (5-34) Units/L ALT 10 (0-55) Units/L Alkaline Phosphatase 88 (38-126) Units/L Troponin I 0.00 (0-0.03) ng/mL Serum Total Protein 7.8 (6.0-8.3) g/dL Albumin 3.9 (3.5-5.0) g/dL Globulin 3.9 H (2.4-3.5) g/dL Albumin/Globulin Ratio 1.0 L (1.1-2.2) Urine Color (Yellow) Urine Clarity (Clear) Urine pH (5.0-8.0) pH Units Ur Specific [place] (1.010-1.025) Urine Protein (Neg-Trace) mg/dL Urine Glucose (UA) (Normal) mg/dL Urine Ketones (Negative) mg/dL Urine Blood (Negative) Urine Nitrite (Negative) Urine Bilirubin (Negative) Urine Urobilinogen (Normal) mg/dL Ur Leukocyte Esterase (Negative) Urine Microscopic RBC (0-3) per hpf Urine Microscopic WBC (0-3) per hpf Ur Squamous Epith Cells (None-Few) per lpf Urine Bacteria (None-Few) per hpf Hyaline Casts (None-Few) per lpf Ur Culture Indicated? (NO) - Radiology Data Radiology results reviewed: Yes I reviewed the patient's radiology results. Critical Care Time Critical Care Time: Yes Total Critical Care Time: 35 Attestation: Critical care time 35 minutes managing paces sepsis pneumonia and urinary tract infection.
[2017-03-05 18:27] LABS: Bilirubin,Urine Small (Negative); Blood,Urine Negative (Negative); Clarity,Urine Cloudy (Clear); Color,Urine Dark Yellow (Yellow); Glucose,Urine (UA) Normal (Normal); Ketones,Urine Trace mg/dL (Negative); Leukocyte Esterase,Urine Small (Negative); Nitrite,Urine Positive (Negative); PH,Urine 6.5 pH Units (5.0-8.0); Protein,Urine Trace mg/dL (Neg-Trace); Specific Gravity,Urine 1.029 (1.010-1.025); Urobilinogen,Urine Normal (Normal)
[2017-03-05 18:29] LABS: Bacteria,Urine Many per hpf (None-Few); Hyaline Casts,Urine None Seen per lpf (None-Few); Squamous Epithelial Cell,Urine Many per lpf (None-Few)
[2017-03-05 19:40] LABS: Basophils % 0.4 %; Eosinophils % 0.4 %; Hematocrit 42.7 % (35.3-44.9); Hemoglobin 14.6 g/dL (11.5-15.4); Immature Granulocytes % 0.3 % (0-4); Lymphocytes # 1.2 K/mcL (0.6-4.6); Lymphocytes % 14.7 %; Mean Corpuscular HGB Conc 34.2 g/dL (31.6-35.5); Mean Corpuscular Hemoglobin 28.6 pg (28.0-33.3); Mean Corpuscular Volume 83.7 fL (83.0-100.0); Mean Platelet Volume 9.9 fL (9.4-12.4); Monocytes # 0.4 K/mcL (0.0-1.3); Neutrophils # 6.2 K/mcL (1.6-8.9); Platelet Count 324 K/mcL (140-400); Red Cell Distribution Width 15.2 % (11.5-14.5); Segmented Neutrophils % 79.2 %
[2017-03-05 19:46] LABS: INR 1.1; Prothrombin Time 12.1 Seconds (9.4-12.1)
[2017-03-05 19:48] LABS: Activated Partial Thrombo Time 32.1 Seconds (26.0-36.0)
[2017-03-05 19:55] LABS: Alanine Aminotransferase 10 Units/L (0-55); Albumin 3.9 g/dL (3.5-5.0); Alkaline Phosphatase 88 Units/L (38-126); Aspartate Amino Transferase 19 Units/L (5-34); BUN/Creatinine Ratio 21 (6-26); Bilirubin,Direct 0.2 mg/dL (0.0-0.5); Bilirubin,Indirect 0.2 mg/dL (0.0-1.2); Bilirubin,Total 0.4 mg/dL (0.2-1.2); Blood Urea Nitrogen 16 mg/dL (7-20); Calcium 9.8 mg/dL (8.6-10.8); Carbon Dioxide 27 mEq/L (19-29); Chloride 102 mEq/L (98-109); Globulin 3.9 g/dL (2.4-3.5); Glucose 101 mg/dL (70-99); Magnesium 2.3 mg/dL (1.6-2.6); Osmolality,Calculated 287 (280-300); Phosphorous 2.1 mg/dL (2.3-4.7); Potassium 4.4 mEq/L (3.5-4.5); Sodium 138 mEq/L (136-145); Total Protein 7.8 g/dL (6.0-8.3); eGFR For African Americans > 60 (> 60); eGFR For Non-African Americans > 60 (> 60)
[2017-03-05] MEDS ORDERED: Ondansetron 4 MG/2 ML VIAL IVP PRN (23:15)
[2017-03-05] MEDS ORDERED: *HR* Morphine 2 MG/ML SYRINGE IVP PRN (23:15)
[2017-03-05] MEDS ORDERED: *HR* Promethazine 25 MG/ML VIAL IVP PRN (23:15)
[2017-03-05] MEDS ORDERED: *HR* HYDROcodone/Acet 5/325 mg TABLET PO PRN (23:15)
[2017-03-05] MEDS ORDERED: Naloxone 0.4 MG/ML INJ IVP PRN (23:15)
[2017-03-05] MEDS ORDERED: Acetaminophen 325 MG TABLET PO PRN (23:15)
[2017-03-05] MEDS ORDERED: MOM Conc 10 ML UD.LIQ PO PRN (23:15)
[2017-03-05] MEDS ORDERED: *HR* FentaNYL PATCH 75 MCG PATCH TD SCH (23:30)
[2017-03-06] MEDS: Ertapenem 1,000 MG in 0.9 % Sodium Chloride Mini Bag 100 ML IVPB SCH (00:28)
[2017-03-06] MEDS: 0.9 % Sodium Chloride 1,000 ML IVC SCH ×4 (00:28→21:53)
--- NOTE | 2017-03-06 00:42 | Internal Med History&Physical ---
Date of Encounter: 03/05/17 Time of Encounter: 22:45 Assessment and Plan (1) SIRS (systemic inflammatory response syndrome) Current visit: Yes Status: Acute Will admit the pt into tele Pt does meet SIRS criteria with Tachycardia, source of inf as UTI Will start her on IVF Reviewed her UA - Showed Nitrite +ve, Bacteria + Her urine cx in the past grew ESBL So will start her on Invanz now cont close monitoring now Reviewed CXR showinf atelectasis.. no acute infiltrates noticed. (2) Urinary tract infection Current visit: Yes Status: Acute See above Qualifiers: Indwelling urinary catheter type: unspecified Encounter type: initial encounter Qualified Code(s): T83.511A - Infection and inflammatory reaction due to indwelling urethral catheter, initial encounter; N39.0 - Urinary tract infection, site not specified; N39.0 - Urinary tract infection, site not specified (3) Immunosuppressed due to chemotherapy Current visit: No Status: Chronic cont close monitoring (4) Pleural effusion Current visit: Yes Status: Acute Reviewed CTA of chest Her pleural effusion seems to be exudative due to metastatic disease with lung nodules as primary breast Ca At this point pt is asymptomatic however with sepsis, will hold on diuretics for now no signs of pneumonia (5) Metastatic breast cancer Current visit: No Status: Chronic resumed home pain meds pt's hemeonc recommended the pt to hold on her Xeloda for few days. need to f/u with Heme Onc as an out pt (6) DVT prophylaxis Current visit: No Status: Acute on lovenox SQ (7) History of ESBL E. coli infection Current visit: Yes Status: Acute Internal Medicine - H&P: HPI Chief complaint: fever / chills.. Dysuria Admitted From: Emergency Dept Plans for Post Hospital Care: Home History of present illness: Ms. Urbina is a 46 year old female with a history of chronic nephrolithiasis, recurrent UTI, h/o ESBL positive UTI, who also has metastatic breast cancer currently taking chemotherapy for approximately 7 years presented to the emergency department with difficulty urinating and fever with chills. She denied any CP / SOB. Denied any URI / Cold / Cough symptoms. Denies abdominal pain. She has had a very strong smell to her urine. Past Med Surg Social Fam HX - Past Medical History Medical history: cancer, kidney stones Psychiatric history: anxiety, depression - Past Surgical History Surgical History: cancer surgery, ROSIE/BSO - Social History Smoking Status: Never smoker Smokeless Tobacco Status: No Alcohol use: none Drug use: none - Family History Mother Living Status: Father Adopted: [place]: Luigi Ascencio Age: 72 Family Member Ethnicity: Non- Living Status: Still Living Hx Family Cardiac Disorders: No Hx Family Respiratory Disorders: No Hx Family Cancer: No Hx Family GI Disorders: No Hx Family Genitourinary Disorders: No Hx Family Endocrine Disorder: No Hx Family Musculoskeletal Disorders: No Internal Medicine - H&P: Meds Calcium Carbonate/Vitamin D3 [Calcium 600 + Vitamin D Sftgl] 1 cap PO BID [History] Duloxetine HCl [Cymbalta] 60 mg PO QAM 12/24/14 [History] Multivitamin with Minerals [Myvitalife] 1 cap PO DAILY 03/31/15 [History] Docusate [Colace] 100 mg PO BID PRN #30 capsule 09/01/16 [Rx] Omeprazole [PriLOSEC] 20 mg PO DAILY #30 cap 09/13/16 [Rx] Ondansetron [Zofran] 4 mg PO Q6H PRN #20 tablet 09/13/16 [Rx] Prochlorperazine Maleate [Compazine] 10 mg PO Q6HR PRN #60 tablet 09/13/16 [Rx] LORazepam [Ativan] 1 mg PO BID #60 tablet 01/22/17 [Rx] Dronabinol [Marinol] 10 mg PO BID #60 capsule 01/30/17 [Rx] FentaNYL PATCH [Duragesic] 75 mcg TD Q72H #10 patch.td72 01/30/17 [Rx] Venlafaxine HCl [Venlafaxine HCl ER] 150 mg PO HS #30 01/30/17 [Rx] Capecitabine [Xeloda] 1,500 mg PO BID 03/05/17 [History] Cyclobenzaprine [Flexeril] 5 mg PO HS PRN 03/05/17 [History] Gabapentin [Neurontin] 600 mg PO HS 03/05/17 [History] Oxycodone HCl 10 - 20 mg PO Q6H PRN 03/05/17 [History] 3 Allergy/AdvReac Type Severity Reaction Status Date / Time No Known Allergies Allergy Verified 03/05/17 16:55 All Systems PM: A 10-system review of systems was performed and is negative for pertinent findings except as documented above in the HPI. Review of systems: All the systems are reviewed everything is benign except the systems and symptoms I mentioned in the history of present illness - Constitutional Vitals: Temp Pulse Resp BP Pulse Ox 98.3 F 100 18 115/72 98 03/05/17 23:49 03/05/17 23:49 03/05/17 23:49 03/05/17 23:49 03/05/17 23:49 General appearance: Present: A&O X 3, no acute distress, answers questions appropriately - Head Head exam: Present: atraumatic, normal inspection - Respiratory Respiratory exam: Present: decreased breath sounds, wheezes. Absent: rales, respiratory distress, rhonchi - Cardiovascular Cardiovascular exam: Present: RRR, +S1, +S2. Absent: systolic murmur - GI/Abdominal GI/Abdominal exam: Present: normal bowel sounds, soft. Absent: distended, rebound, rigid, tenderness - Extremities Exam Extremities exam: Absent: calf tenderness, pedal edema, tenderness - Back Exam Back exam: Absent: CVA tenderness (L), CVA tenderness (R), rash noted, tenderness - Neurological Exam Neurological exam: Present: alert, oriented X3 - Psychiatric Psychiatric exam: Present: normal affect, normal mood Internal Med - H&P Results - Labs CBC & Chem 7: 03/05/17 19:31 03/05/17 19:31
[2017-03-06] MEDS: *HR* Enoxaparin 40 MG/0.4 ML SYRINGE SQ SCH (05:50)
[2017-03-06 06:26] LABS: Basophils % 0.3 %; Eosinophils # 0.1 K/mcL (0.0-0.6); Eosinophils % 2.1 %; Hematocrit 33.8 % (35.3-44.9); Hemoglobin 11.3 g/dL (11.5-15.4); Immature Granulocytes % 0.3 % (0-4); Lymphocytes # 1.7 K/mcL (0.6-4.6); Lymphocytes % 28.1 %; Mean Corpuscular HGB Conc 33.4 g/dL (31.6-35.5); Mean Corpuscular Hemoglobin 28.6 pg (28.0-33.3); Mean Corpuscular Volume 85.6 fL (83.0-100.0); Mean Platelet Volume 10.1 fL (9.4-12.4); Monocytes # 0.6 K/mcL (0.0-1.3); Monocytes % 9.5 %; Neutrophils # 3.7 K/mcL (1.6-8.9); Platelet Count 259 K/mcL (140-400); Red Blood Count 3.95 M/mcL (3.82-4.97); Red Cell Distribution Width 15.3 % (11.5-14.5); Segmented Neutrophils % 59.7 %
[2017-03-06 06:34] LABS: BUN/Creatinine Ratio 20 (6-26); Blood Urea Nitrogen 14 mg/dL (7-20); Calcium 8.4 mg/dL (8.6-10.8); Carbon Dioxide 26 mEq/L (19-29); Chloride 110 mEq/L (98-109); Glucose 80 mg/dL (70-99); Magnesium 1.9 mg/dL (1.6-2.6); Osmolality,Calculated 289 (280-300); Potassium 3.8 mEq/L (3.5-4.5); Sodium 140 mEq/L (136-145); eGFR For African Americans > 60 (> 60); eGFR For Non-African Americans > 60 (> 60)
[2017-03-06] MEDS ORDERED: Famotidine 20 MG TABLET PO SCH (07:30)
[2017-03-06] MEDS: Multivit/Ca/Min/Fe/FA 1 TAB TABLET PO SCH (08:42)
[2017-03-06] MEDS: *HR* LORazepam 1 MG TABLET PO SCH ×2 (08:42→21:51)
[2017-03-06] MEDS ORDERED: CALCIUM/VITAMIN D PO SCH (09:00)
[2017-03-06] MEDS: Cholecalciferol (D-3) 1,000 UNIT TABLET PO SCH (10:01)
--- NOTE | 2017-03-06 16:43 | Electrocardiograph Report ---
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
--- NOTE | 2017-03-06 17:50 | Internal Med Progress Note ---
Date of Encounter: 03/06/17 Time of Encounter: 12:00 - Assessment and plan (1) Urinary tract infection Current Visit: Yes Status: Acute Assessment and plan: History of ESBL infection. Continue Invanz. Qualifiers: Indwelling urinary catheter type: unspecified Encounter type: initial encounter Qualified Code(s): T83.511A - Infection and inflammatory reaction due to indwelling urethral catheter, initial encounter; N39.0 - Urinary tract infection, site not specified; N39.0 - Urinary tract infection, site not specified (2) SIRS (systemic inflammatory response syndrome) Current Visit: Yes Status: Acute Assessment and plan: As per problem #1. (3) Metastatic breast cancer Current Visit: No Status: Chronic Assessment and plan: Patient's home medications. Hem/onc recommended to hold Xeloda for a few days. (4) Pleural effusion Current Visit: Yes Status: Acute Assessment and plan: We will monitor respiratory status. Patient is concerned if pleural effusions are related to her infection. Informed patient that most likely this is related to UTI. If respiratory status worsens, we can consider discussing with IR if this is something that needs tapped. Over this is most likely related to malignancy (5) History of ESBL E. coli infection Current Visit: Yes Status: Acute - Subjective Interval history: No acute events overnight. Patient is feeling better. She denies any fevers, dysuria. - Constitutional Vitals: Temp Pulse Resp BP Pulse Ox 97.6 F 102 16 134/82 97 03/06/17 16:08 03/06/17 16:08 03/06/17 16:08 03/06/17 16:08 03/06/17 16:08 Exam: General appearance: Present: A&O X 3, no acute distress, answers questions appropriately - Head Head exam: Present: atraumatic, normal inspection - Respiratory Respiratory exam: Present: decreased breath sounds, wheezes. Absent: rales, respiratory distress, rhonchi - Cardiovascular Cardiovascular exam: Present: RRR, +S1, +S2. Absent: systolic murmur - GI/Abdominal GI/Abdominal exam: Present: normal bowel sounds, soft. Absent: distended, rebound, rigid, tenderness - Extremities Exam Extremities exam: Absent: calf tenderness, pedal edema, tenderness - Back Exam Back exam: Absent: CVA tenderness (L), CVA tenderness (R), rash noted, tenderness - Neurological Exam Neurological exam: Present: alert, oriented X3 - Psychiatric Psychiatric exam: Present: normal affect, normal mood Internal Medicine: Result - Labs CBC & Chem 7: 03/06/17 06:15 03/06/17 06:15 Labs: Short CBC 03/06/17 Range/Units 06:15 WBC 6.1 (4.3-11.1) K/mcL Hgb 11.3 L D (11.5-15.4) g/dL Hct 33.8 L (35.3-44.9) % Plt Count 259 (140-400) K/mcL Neutrophils # 3.7 (1.6-8.9) K/mcL BMP 03/06/17 06:15 Sodium 140 Potassium 3.8 Chloride 110 H Carbon Dioxide 26 BUN 14 Creatinine 0.71 Glucose 80 Calcium 8.4 L - ABG Interpretation ABG results: PT/INR, D-dimer PT 12.1 Seconds (9.4-12.1) 03/05/17 19:31 - VTE Documentation of Mechanical Device: Intermittent pneumatic compression device Consult Discharge Plan - Plan Referrals: Johnnie Amaya MD [Primary Care Provider] - 03/16/17 10:15 am (please follow with Max Mendez)
[2017-03-06] MEDS: Venlafaxine XR (24 HR) 150 MG CAP.ER.24H PO SCH (21:50)
[2017-03-06] MEDS: Gabapentin 300 MG CAPSULE PO SCH (21:51)
[2017-03-07] MEDS: Ertapenem 1,000 MG in 0.9 % Sodium Chloride Mini Bag 100 ML IVPB SCH (00:16)
[2017-03-07 04:02] LABS: Basophils % 0.4 %; Eosinophils # 0.1 K/mcL (0.0-0.6); Eosinophils % 2.7 %; Hematocrit 31.8 % (35.3-44.9); Hemoglobin 10.6 g/dL (11.5-15.4); Immature Granulocytes % 0.4 % (0-4); Lymphocytes # 1.6 K/mcL (0.6-4.6); Lymphocytes % 34.5 %; Mean Corpuscular HGB Conc 33.3 g/dL (31.6-35.5); Mean Corpuscular Hemoglobin 28.9 pg (28.0-33.3); Mean Corpuscular Volume 86.6 fL (83.0-100.0); Mean Platelet Volume 9.6 fL (9.4-12.4); Monocytes # 0.5 K/mcL (0.0-1.3); Monocytes % 9.5 %; Neutrophils # 2.5 K/mcL (1.6-8.9); Platelet Count 236 K/mcL (140-400); Red Blood Count 3.67 M/mcL (3.82-4.97); Red Cell Distribution Width 15.2 % (11.5-14.5); Segmented Neutrophils % 52.5 %
[2017-03-07 04:10] LABS: BUN/Creatinine Ratio 12 (6-26); Blood Urea Nitrogen 8 mg/dL (7-20); Calcium 8.6 mg/dL (8.6-10.8); Carbon Dioxide 28 mEq/L (19-29); Chloride 111 mEq/L (98-109); Glucose 63 mg/dL (70-99); Osmolality,Calculated 288 (280-300); Potassium 3.9 mEq/L (3.5-4.5); Sodium 141 mEq/L (136-145); eGFR For African Americans > 60 (> 60); eGFR For Non-African Americans > 60 (> 60)
[2017-03-07] MEDS: *HR* Enoxaparin 40 MG/0.4 ML SYRINGE SQ SCH (06:17)
[2017-03-07] MEDS: *HR* LORazepam 1 MG TABLET PO SCH ×2 (08:17→21:01)
[2017-03-07] MEDS: Cholecalciferol (D-3) 1,000 UNIT TABLET PO SCH (08:17)
[2017-03-07] MEDS: 0.9 % Sodium Chloride 1,000 ML IVC SCH ×2 (08:17→21:01)
[2017-03-07] MEDS: Multivit/Ca/Min/Fe/FA 1 TAB TABLET PO SCH (08:17)
--- NOTE | 2017-03-07 15:13 | Oncology Inp Consult Note ---
Date of Encounter: 03/07/17 Time of Encounter: 15:13 Assessment and Plan (1) History of ESBL E. coli infection Status: Acute Assessment and plan: Currently admitted with UTI getting IV fluids and IV antibiotics. Currently on ertapenem 1 g IV every 24 hours Sensitivity on UTI pending. It grew Escherichia coli area and blood cultures have been negative from 03/05/2017 (2) Metastatic breast cancer Status: Chronic Assessment and plan: She progressed on Xeloda. Increasing lung nodules by CT chest without contrast 03/05/2017 compared to September 2016. Also CA-27-29 increased to 109 and 01/30/2017 from 70 on 11/30/2016. We will proceed with left neck core biopsy and sentinel material for [facility] on testing. We will consider changing treatment to a different chemotherapy after discharge. - Data of Consult Patient: known to practice within the last 3 years Requesting Physician: Yusuf Narvaez MD Primary Care Provider: Johnnie Amaya MD - Consult Narrative Reason for consult: Metastatic breast cancer History of present illness: Ms. Urbina is a 46 year old female admitted with service criteria and sepsis. Improved with IV fluids and antibiotics. She had ESBL UTI on August 2016 and required prolonged course of antibiotics. Currently blood cultures negative from 03/05/2017 but urine culture grew Escherichia coli and sensitivity pending Oncological history In October 2005, the patient had left breast biopsy, and then on 11/22/2005 had wide excision, sentinel node mapping. This is grade 2, left breast cancer, 0/7 nodes grossly positive, but one node had 6-8 positive cells by immunohistochemical stains. Therefore, this is a T1c N0 (i+) M0 ER/AZ positive , HER-2 negative. BRCA tested, which was negative She had multiple courses of chemotherapy. She had a biopsy of left neck lymph node which confirmed metastatic breast cancer. ER/AZ positive HER-2 negative at this time. Since then she has been switched to Xeloda which was held during this hospitalization Please refer to my dictation 03/05/[address] chest abdomen and pelvis 03/05/2017 without contrast showed increase in the lung nodules . Largest left lung base 1.8 cm in largest on the right lung base 1.3 cm. Some fullness in the left supraclavicular area. CT abdomen and pelvis negative She also has a left cervical palpable lymph nodes 3 area. This has been stable She has been on Xeloda 1500 mg by mouth twice a day with 2 weeks on one week off since 01/05/2017. Her CA-27-29 has increased from 70 on 11/30/2016 209 on 01/30/2017. We will proceed with IR biopsy left neck lymph node. We will send that material for [facility] one testing. Past Med Surg Social Fam HX - Past Medical History Medical history: cancer, kidney stones Psychiatric history: anxiety, depression - Past Surgical History Surgical History: cancer surgery, ROSIE/BSO - Social History Smoking Status: Never smoker Smokeless Tobacco Status: No Alcohol use: none Drug use: none - Family History Mother Living Status: Father Adopted: [place]: Luigi Ascencio Age: 72 Family Member Ethnicity: Non- Living Status: Still Living Hx Family Cardiac Disorders: No Hx Family Respiratory Disorders: No Hx Family Cancer: No Hx Family GI Disorders: No Hx Family Genitourinary Disorders: No Hx Family Endocrine Disorder: No Hx Family Musculoskeletal Disorders: No Medications and Allergies Calcium Carbonate/Vitamin D3 [Calcium 600 + Vitamin D Sftgl] 1 cap PO BID [History] Duloxetine HCl [Cymbalta] 60 mg PO QAM 12/24/14 [History] Multivitamin with Minerals [Myvitalife] 1 cap PO DAILY 03/31/15 [History] Docusate [Colace] 100 mg PO BID PRN #30 capsule 09/01/16 [Rx] Omeprazole [PriLOSEC] 20 mg PO DAILY #30 cap 09/13/16 [Rx] Ondansetron [Zofran] 4 mg PO Q6H PRN #20 tablet 09/13/16 [Rx] Prochlorperazine Maleate [Compazine] 10 mg PO Q6HR PRN #60 tablet 09/13/16 [Rx] Dronabinol [Marinol] 10 mg PO BID #60 capsule 01/30/17 [Rx] Venlafaxine HCl [Venlafaxine HCl ER] 150 mg PO HS #30 01/30/17 [Rx] Capecitabine [Xeloda] 1,500 mg PO BID 03/05/17 [History] Cyclobenzaprine [Flexeril] 5 mg PO HS PRN 03/05/17 [History] Gabapentin [Neurontin] 600 mg PO HS 03/05/17 [History] FentaNYL PATCH [Duragesic] 75 mcg TD Q72H #10 patch.td72 03/07/17 [Rx] LORazepam [Ativan] 1 mg PO BID #60 tablet 03/07/17 [Rx] Oxycodone HCl 10 - 20 mg PO Q6H PRN #120 tablet 03/07/17 [Rx] 3 Allergy/AdvReac Type Severity Reaction Status Date / Time No Known Allergies Allergy Verified 03/05/17 16:55 Review of systems: Tachycardia lethargic and diaphoresis. They all improved with IV fluids and antibiotics. Currently she is more alert and energetic Oncology - Exam - Constitutional Vitals: Temp Pulse Resp BP Pulse Ox 98.3 F 104 18 138/95 96 03/07/17 11:35 03/07/17 11:35 03/07/17 11:35 03/07/17 11:35 03/07/17 11:35 Exam: GENERAL: Alert and oriented, well appearing. Mental Status: Affect appropriate for circumstances HEENT: Sclerae anicteric. No mucositis or thrush. No other oral or pharyngeal lesions or erythema. Skin: No rashes or petechiae. No evidence of skin malignancy Lymph nodes: BRCA2 centimeter lymph node palpable left neck level III. Mild fullness left supraclavicular fossa. Lungs: Air entry normal with normal breath sounds. No rhonchi or wheezing Cardiovascular: Regular rate and rhythm. No skipped beats Abdomen: Soft, nontender; no organomegaly or masses palpable. Extremities: No edema. No calf swelling or tenderness. No joint deformity. Neurologic: Alert, cranial nerves II-XII intact; normal gait; no focal weakness or sensory abnormalities Oncology - Results Labs: Short CBC 03/07/17 Range/Units 03:45 WBC 4.8 (4.3-11.1) K/mcL Hgb 10.6 L (11.5-15.4) g/dL Hct 31.8 L (35.3-44.9) % Plt Count 236 (140-400) K/mcL Neutrophils # 2.5 (1.6-8.9) K/mcL BMP 03/07/17 03:45 Sodium 141 Potassium 3.9 Chloride 111 H Carbon Dioxide 28 BUN 8 Creatinine 0.67 Glucose 63 L Calcium 8.6 Consult Discharge Plan - Plan Referrals: Vandana Alvarez MD [Partnered Physician] - 03/14/17 10:00 am (Please follow up as schedule..) Johnnie Amaya MD [Primary Care Provider] - 03/16/17 10:15 am (please follow with Max Mendez)
--- NOTE | 2017-03-07 17:05 | Internal Med Progress Note ---
Date of Encounter: 03/07/17 Time of Encounter: 17:03 - Assessment and plan (1) Urinary tract infection Current Visit: Yes Status: Acute Assessment and plan: History of ESBL infection. Continue Invanz. Awaiting culture sensitivity, and will transition antibiotics accordingly Qualifiers: Indwelling urinary catheter type: unspecified Encounter type: initial encounter Qualified Code(s): T83.511A - Infection and inflammatory reaction due to indwelling urethral catheter, initial encounter; N39.0 - Urinary tract infection, site not specified; N39.0 - Urinary tract infection, site not specified (2) SIRS (systemic inflammatory response syndrome) Current Visit: Yes Status: Resolved Assessment and plan: Resolved (3) Metastatic breast cancer Current Visit: No Status: Chronic Assessment and plan: Oncology has been consulted. She had CT chest showing increasing size of lung nodules and plan is for her to undergo left neck core biopsy tomorrow. (4) Pleural effusion Current Visit: Yes Status: Acute (5) History of ESBL E. coli infection Current Visit: Yes Status: Acute (6) Hemoglobin drop Current Visit: Yes Status: Acute Assessment and plan: She has no history of bleed, no signs of acute bleed. She has not been on any sort of anticoagulation. This is most likely hemodilution as she has received + 6 L. Will recheck CBC in a.m. - Subjective Interval history: No acute events overnight. She denies any fevers, dysuria. - Constitutional Vitals: Temp Pulse Resp BP Pulse Ox 98.2 F 100 17 126/91 95 03/07/17 16:25 03/07/17 16:25 03/07/17 16:25 03/07/17 16:25 03/07/17 16:25 General appearance: Present: A&O X 3, no acute distress, answers questions appropriately - Respiratory Respiratory exam: Present: CTAB. Absent: accessory muscle use, rales, rhonchi, wheezes - Cardiovascular Cardiovascular exam: Present: RRR, +S1, +S2. Absent: diastolic murmur, gallop, rubs, systolic murmur - Additional comments: Deferred Internal Medicine: Result - Labs CBC & Chem 7: 03/07/17 03:45 03/07/17 03:45 Labs: Short CBC 03/07/17 Range/Units 03:45 WBC 4.8 (4.3-11.1) K/mcL Hgb 10.6 L (11.5-15.4) g/dL Hct 31.8 L (35.3-44.9) % Plt Count 236 (140-400) K/mcL Neutrophils # 2.5 (1.6-8.9) K/mcL BMP 03/07/17 03:45 Sodium 141 Potassium 3.9 Chloride 111 H Carbon Dioxide 28 BUN 8 Creatinine 0.67 Glucose 63 L Calcium 8.6 - ABG Interpretation ABG results: PT/INR, D-dimer PT 12.1 Seconds (9.4-12.1) 03/05/17 19:31 - VTE Documentation of Mechanical Device: Intermittent pneumatic compression device Consult Discharge Plan - Plan Referrals: Vandana Alvarez MD [Partnered Physician] - 03/14/17 10:00 am (Please follow up as schedule..) Johnnie Amaya MD [Primary Care Provider] - 03/16/17 10:15 am (please follow with Max Mendez)
[2017-03-07] MEDS: Gabapentin 300 MG CAPSULE PO SCH (21:00)
[2017-03-07] MEDS: Venlafaxine XR (24 HR) 150 MG CAP.ER.24H PO SCH (21:01)
[2017-03-08] MEDS: Ertapenem 1,000 MG in 0.9 % Sodium Chloride Mini Bag 100 ML IVPB SCH (00:32)
[2017-03-08] MEDS: *HR* Enoxaparin 40 MG/0.4 ML SYRINGE SQ SCH (04:49)
[2017-03-08 05:09] LABS: Basophils % 0.4 %; Eosinophils # 0.1 K/mcL (0.0-0.6); Eosinophils % 2.4 %; Hematocrit 33.8 % (35.3-44.9); Hemoglobin 11.6 g/dL (11.5-15.4); Immature Granulocytes % 0.2 % (0-4); Lymphocytes # 1.5 K/mcL (0.6-4.6); Lymphocytes % 28.3 %; Mean Corpuscular HGB Conc 34.3 g/dL (31.6-35.5); Mean Corpuscular Hemoglobin 29.4 pg (28.0-33.3); Mean Corpuscular Volume 85.8 fL (83.0-100.0); Mean Platelet Volume 9.7 fL (9.4-12.4); Monocytes # 0.5 K/mcL (0.0-1.3); Monocytes % 8.6 %; Neutrophils # 3.3 K/mcL (1.6-8.9); Platelet Count 279 K/mcL (140-400); Red Blood Count 3.94 M/mcL (3.82-4.97); Red Cell Distribution Width 15.2 % (11.5-14.5); Segmented Neutrophils % 60.1 %
[2017-03-08 05:23] LABS: BUN/Creatinine Ratio 10 (6-26); Blood Urea Nitrogen 6 mg/dL (7-20); Calcium 9.3 mg/dL (8.6-10.8); Carbon Dioxide 27 mEq/L (19-29); Chloride 107 mEq/L (98-109); Glucose 109 mg/dL (70-99); Osmolality,Calculated 288 (280-300); Potassium 3.7 mEq/L (3.5-4.5); Sodium 140 mEq/L (136-145); eGFR For African Americans > 60 (> 60); eGFR For Non-African Americans > 60 (> 60)
[2017-03-08] MEDS: Cholecalciferol (D-3) 1,000 UNIT TABLET PO SCH (08:08)
[2017-03-08] MEDS: Multivit/Ca/Min/Fe/FA 1 TAB TABLET PO SCH (08:08)
[2017-03-08] MEDS: *HR* LORazepam 1 MG TABLET PO SCH (08:08)
[2017-03-08] MEDS ORDERED: *HR* FentaNYL (PF) 100 MCG/2 ML VIAL IVP PRN (08:46)
[2017-03-08] MEDS ORDERED: *HR* Midazolam HCl 2 MG/2 ML VIAL IVP PRN (08:46)
--- NOTE | 2017-03-08 09:19 | IR Procedure Note ---
Date of procedure: 03/08/17 Consent Obtained: Verbal consent, Written consent Timeout: Correct patient and procedure verified, Correct site verified, Time out performed, Skin prep completed Local anesthetic: Lidocaine 1% Indications: Breast Cancer Procedure Performed: Ultrasound guided cervical mass biopsy Site/Technique: US guided guided biopsy left cervical lymph node mass Results/Findings: 4 18 gauge biopsies obtained Estimated blood loss (cc): 0 Complications: None; Tolerated procedure well Post Procedure Treatment Plan: Continue inpatient care
[2017-03-08 11:14] VITALS: BP 125/75
[2017-03-08] MEDS ORDERED: Nitrofurantoin (BID) 100 MG CAPSULE PO SCH (13:00)
[2017-03-08] MEDS: 0.9 % Sodium Chloride 1,000 ML IVC SCH ×3 (14:19→14:20)
--- NOTE | 2017-03-08 15:01 | Discharge Summary ---
Date of Encounter: 03/08/17 Time of Encounter: 14:51 - Discharge Diagnosis (1) Sepsis due to Escherichia coli Priority: Primary Status: Resolved (2) Urinary tract infection Priority: Secondary Status: Resolved Qualifiers: Indwelling urinary catheter type: unspecified Encounter type: initial encounter Qualified Code(s): T83.511A - Infection and inflammatory reaction due to indwelling urethral catheter, initial encounter; N39.0 - Urinary tract infection, site not specified; N39.0 - Urinary tract infection, site not specified (3) Metastatic breast cancer Priority: Secondary Status: Chronic (4) Pleural effusion Priority: Secondary Status: Acute (5) History of ESBL E. coli infection Priority: Secondary Status: Acute (6) Hemoglobin drop Priority: Secondary Status: Acute - Discharge Medications Prescriptions: Nitrofurantoin (BID) [Macrobid] 100 mg PO BIDWM #14 capsule Home Medications: Calcium Carbonate/Vitamin D3 [Calcium 600 + Vitamin D Sftgl] 1 cap PO BID [History] Duloxetine HCl [Cymbalta] 60 mg PO QAM 12/24/14 [History] Multivitamin with Minerals [Myvitalife] 1 cap PO DAILY 03/31/15 [History] Docusate [Colace] 100 mg PO BID PRN #30 capsule 09/01/16 [Rx] Omeprazole [PriLOSEC] 20 mg PO DAILY #30 cap 09/13/16 [Rx] Ondansetron [Zofran] 4 mg PO Q6H PRN #20 tablet 09/13/16 [Rx] Prochlorperazine Maleate [Compazine] 10 mg PO Q6HR PRN #60 tablet 09/13/16 [Rx] Dronabinol [Marinol] 10 mg PO BID #60 capsule 01/30/17 [Rx] Venlafaxine HCl [Venlafaxine HCl ER] 150 mg PO HS #30 01/30/17 [Rx] Capecitabine [Xeloda] 1,500 mg PO BID 03/05/17 [History] Cyclobenzaprine [Flexeril] 5 mg PO HS PRN 03/05/17 [History] Gabapentin [Neurontin] 600 mg PO HS 03/05/17 [History] FentaNYL PATCH [Duragesic] 75 mcg TD Q72H #10 patch.td72 03/07/17 [Rx] LORazepam [Ativan] 1 mg PO BID #60 tablet 03/07/17 [Rx] Oxycodone HCl 10 - 20 mg PO Q6H PRN #120 tablet 03/07/17 [Rx] Nitrofurantoin (BID) [Macrobid] 100 mg PO BIDWM #14 capsule 03/08/17 [Rx] Allergies/Adverse Reactions: 3 Allergy/AdvReac Type Severity Reaction Status Date / Time No Known Allergies Allergy Verified 03/05/17 16:55 Procedures/tests Complete & Pending: Procedures Performed prior 72 hours Category Date Time Status IR biopsy lymph node [IR] Routine IR 03/08/17 Completed Date of admission: 03/05/17 23:15 Primary care physician: Johnnie Amaya MD Consults: 03/07/17 14:40 Consult to Oncology Hematology [CONS] Routine Consulting Provider: Vandana Alvarez Reason for Consult: requested to do biopsy Call Completed: Yes Discharging clinician: Yusuf Narvaez - Patient Status Disposition: Home, Self-Care Condition: Fair Functional capacity at discharge: independent ambulation Overall status at discharge: patient is progressing back to baseline - Discharge Instructions Instructions: Sepsis (DC) Follow Up With: Vandana Alvarez MD [Partnered Physician] - 03/14/17 10:00 am (Please follow up as schedule..) Johnnie Amaya MD [Primary Care Provider] - 03/16/17 10:15 am (please follow with Max Mendez) - Diet and Activity Activity: increase activity as tolerated Interval History: Ms. Urbina is a 46 year old female with a history of chronic nephrolithiasis, recurrent UTI, h/o ESBL positive UTI, who also has metastatic breast cancer currently taking chemotherapy for approximately 7 years presented to the emergency department with difficulty urinating and fever with chills. She denied any CP / SOB. Denied any URI / Cold / Cough symptoms. Denies abdominal pain. She has had a very strong smell to her urine. Hospital course: Patient was admitted to telemetry because she was also had source from UTI. She was started on IV fluids and empirically treated with ertapenem. His blood pressure improved, and remained hemodynamically stable she was afebrile. He did not have any leukocytosis. Urine cultures returned and it was pansensitive Escherichia coli. Patient was discharged home on Macrobid. Note that she had a hemoglobin of 14 and following day went to 10. However this was most likely hemodilution as patient was dehydrated and repeat hemoglobins were stable. - Time Spent with Patient Total time spent providing and/or coordinating discharge services: - Constitutional Vitals: Temp Pulse Resp BP Pulse Ox 98.4 F 92 18 125/75 96 03/08/17 11:03 03/08/17 11:03 03/08/17 11:03 03/08/17 11:03 03/08/17 11:03 General appearance: Present: A&O X 3, no acute distress, answers questions appropriately Exam: General appearance: Present: A&O X 3, no acute distress, answers questions appropriately - Head Head exam: Present: atraumatic, normal inspection - Respiratory Respiratory exam: Present: CTAB Absent: rales, respiratory distress, rhonchi - Cardiovascular Cardiovascular exam: Present: RRR, +S1, +S2. Absent: systolic murmur - GI/Abdominal GI/Abdominal exam: Present: normal bowel sounds, soft. Absent: distended, rebound, rigid, tenderness - Extremities Exam Extremities exam: Absent: calf tenderness, pedal edema, tenderness - Back Exam Back exam: Absent: CVA tenderness (L), CVA tenderness (R), rash noted, tenderness - Neurological Exam Neurological exam: Present: alert, oriented X3 - Psychiatric Psychiatric exam: Present: normal affect, normal mood - VTE Documentation of Mechanical Device: Intermittent pneumatic compression device
== END 2017-03-08 15:25 | disposition home or self-care (01) | DRG 987 ==
LOC: EMEROO 17:35 → 3ANU 17:35 → 2ANU 20:36 → SUATTDRO 23:15
PROVIDERS: ADMIT Family Medicine; ATTEND Student in an Organized Health Care Education/Training Program
PROC: IRLYMPH (2017-03-08 09:15)